=== PATIENT | female | born 1945 | race Caucasian/White ===

== ENCOUNTER → 2017-03-08 | Outpatient (CLI) | payer OTHER, MEDICARE ==
[~2017-03-08] MED LIST: ALT/10 PO; ASPEC81 PO; CALCTAB5 PO; CLOP1TAB15 PO; CYAN100048 PO; EZET10TA47 PO; FAMO1TAB47 PO; LATA0.009 OPB; MELO7.5T5 PO; METO25TA56 PO; MULT-845 PO; NITR0.6S7; TRIA0.1L TOP; VENL1CAP92 PO; VTMD1000 PO
[2017-03-08 12:40] LABS: ALT/SGPT 56 U/L (12-78); BLOOD UREA NITROGEN 20 mg/dl (7-18); BUN/CREATININE RATIO 16.7 (10-20); CALCIUM 9.2 mg/dl (8.5-10.1); CARBON DIOXIDE 30 mmol/L (21-32); CHLORIDE 102 mmol/L (98-107); CREATININE 1.18 mg/dl (0.60-1.20); GLUCOSE 167 mg/dl (70-99); POTASSIUM 4.1 mmol/L (3.5-5.1); SODIUM 138 mmol/L (136-145)
[2017-03-08 12:43] LABS: ALKALINE PHOSPHATASE 96 U/L (45-117); AST/SGOT 45 U/L (15-37); CHOLESTEROL 133 mg/dl (0-200); CHOLESTEROL/HDL RATIO 2.7; HDL CHOLESTEROL 50 mg/dl; LDL CHOLESTEROL CALCULATED 53 mg/dl; TRIGLYCERIDES 152 mg/dl (0-150); VERY LOW DENSITY LIPOPROT CALC 30 mg/dl
[2017-03-08 12:48] LABS: ESTIMATED AVERAGE GLUCOSE 177 mg/dl; HA1C FLAG Normal (Normal)
[2017-03-08 12:59] LABS: HEMATOCRIT 43.3 % (37-47); MEAN CELL VOLUME 95.4 fL (80-100); MEAN CORPUSCULAR HEMOGLOBIN 32.4 pg (25-34); MEAN CORPUSCULAR HGB CONC 33.9 g/dl (32-36); MEAN PLATELET VOLUME 13.1 fL (7.4-10.4); PLATELET COUNT 111 K/uL (130-400); RED BLOOD COUNT 4.54 M/uL (4.2-5.4); WHITE BLOOD COUNT 4.68 K/uL (4.8-10.8)
[2017-03-08 17:38] LABS: COMPLETE YES; LYMPH ABS # 1.16 K/uL (1.2-3.4); LYMPHOCYTE % 24.8 %; NEUTROPHILS % 44.2 %; VARIANT LYM ABS # 0.87 K/uL; VARIANT LYMPHOCYTE % 18.6 %
== END | disposition home or self-care (01) ==
LOC: C.LABPBG 10:12
PROVIDERS: ATTEND Physician Assistant
DX: E11.9 Type 2 diabetes mellitus without complications (principal); E78.5 Hyperlipidemia, unspecified

== ENCOUNTER → 2017-07-02 | Outpatient (CLI) | payer OTHER, MEDICARE ==
[2017-07-02 12:58] LABS: BASO % 0.9 %; BASO ABS # 0.04 K/uL (0-0.2); EOS % 2.4 %; EOS ABS # 0.11 K/uL (0-0.5); HEMATOCRIT 43.2 % (37-47); HEMOGLOBIN 14.6 g/dL (12.0-16.0); IG# 0.02 K/uL (0.00-0.02); LYMPH % 37.3 %; LYMPH ABS # 1.72 K/uL (1.2-3.4); MEAN CELL VOLUME 93.9 fL (80-100); MEAN CORPUSCULAR HEMOGLOBIN 31.7 pg (25-34); MEAN CORPUSCULAR HGB CONC 33.8 g/dl (32-36); MEAN PLATELET VOLUME 12.6 fL (7.4-10.4); MONO % 6.1 %; MONO ABS # 0.28 K/uL (0.11-0.59); NEUT % 52.9 %; NEUT ABS # 2.44 K/uL (1.4-6.5); PLATELET COUNT 118 K/uL (130-400); RED CELL DISTRIBUTION WIDTH CV 13.7 % (11.5-14.5); RED CELL DISTRIBUTION WIDTH SD 46.7 fL (36.4-46.3); WHITE BLOOD COUNT 4.61 K/uL (4.8-10.8)
[2017-07-02 13:07] LABS: HEMOGLOBIN A1C 7.8 % (4.5-5.6)
== END | disposition home or self-care (01) ==
LOC: C.LABPBG 09:54
PROVIDERS: ATTEND Nurse Practitioner Family
DX: D69.6 Thrombocytopenia, unspecified (principal); E11.9 Type 2 diabetes mellitus without complications

== ENCOUNTER → 2017-09-06 | Outpatient (CLI) | payer OTHER, MEDICARE ==
[2017-09-10 10:43] LABS: ANA SCREEN TC 249X POSITIVE (NEGATIVE)
== END | disposition home or self-care (01) ==
LOC: C.LABPBG 12:29
PROVIDERS: ATTEND Family Medicine
DX: M25.50 Pain in unspecified joint (principal)

== ENCOUNTER → 2017-12-02 | Outpatient (CLI) | payer OTHER, MEDICARE ==
[~2017-12-02] MED LIST changes: -ALT/10 PO; -ASPEC81 PO; +ATOR-24 PO; +BIMA0.01 OP; +BIOT1TAB2 PO; +BUME1TAB PO; -CALCTAB5 PO; -CLOP1TAB15 PO; -CYAN100048 PO; -EZET10TA47 PO; -FAMO1TAB47 PO; +GLC/500 PO; +GLC500 PO; +HYDR-5688 PO; +ISR/30 PO; -LATA0.009 OPB; +LIRA18IN SQ; -MELO7.5T5 PO; -METO25TA56 PO; +METO50TA16 PO; -MULT-845 PO; -NITR0.6S7; +OMEG12006 PO; +PYRI100T4 PO; -TRIA0.1L TOP; +VALS320T PO; -VENL1CAP92 PO; -VTMD1000 PO; +klor con PO; +omeprazole PO; +vitamin b12 PO; +vitamin d2 PO
[2017-12-02 16:59] LABS: BLOOD UREA NITROGEN 13 mg/dl (7-18); CALCIUM 8.6 mg/dl (8.5-10.1); CARBON DIOXIDE 28 mmol/L (21-32); CREATININE 1.08 mg/dl (0.60-1.20); GLUCOSE 216 mg/dl (70-99); POTASSIUM 4.9 mmol/L (3.5-5.1); SODIUM 138 mmol/L (136-145)
== END | disposition home or self-care (01) ==
LOC: C.LABPBG 14:45
PROVIDERS: ATTEND Family Medicine
DX: R25.2 Cramp and spasm (principal)

== ENCOUNTER 2018-11-21 05:49 | Inpatient (IN) ==
--- NOTE | 2018-10-20 11:09 | Anesthesiology Consultation ---
Date of Service October 20, 2018 Assessment & Plan (1) Encounter for pre-operative examination: CHECK BSG AM DOS Cardiology clearance 11/07/2018: BP and heart rate are well controlled, denies complaints of chest pain or dyspnea and EKG is satisfactory. Patient is stable and at optimal cardiac status presently to proceed with planned surgery. According to ACC/AHA 2007 guidelines on perioperative cardiovascular evaluation and care for noncardiac surgery, monotherapy with ASA need not be routinely discontinued for elective noncardiac surgery. Aspirin should be discontinued if no bleeding risks are similar or more severe than cardia vascular risk of ASA withdrawal. Therefore whether or not to discontinue aspirin will be left to the surgeon's discretion. Chart Review Chart Review: Acceptable Risk for Surgery and Patient seen in Pre Admission Testing Teaching & Discussion Instructed NPO after midnight before surgery, except medications with 15 cc of water. Medication instructions provided according to the PAT guidelines. History Surgery Operation Date: 11/21/18 13:35 Proposed Procedures p Left Shoulder Replacement - Amor Dawn, Height/Weight Height: 4 ft 11 in Weight: 103.6 kg Allergies Allergy/AdvReac Type Severity Reaction Status Date / Time [id number]-Utb-Xtz Reductase AdvReac Unknown myalgias, Verified 10/30/18 12:58 Inhibitor hair loss, fatigue Medications Home Medications Medication Instructions Recorded Confirmed Last Taken aluminum hydrox-magnesium carb 95 15 ml PO DAILY PRN 07/09/18 10/30/18 Unknown mg-358 mg/15 mL oral suspension atorvastatin 40 mg tablet 40 mg PO HS 10/07/18 10/30/18 Unknown bimatoprost 0.01 % eye drops 1 drops OP 10/07/18 10/30/18 Unknown bumetanide 1 mg tablet 1 mg PO [facility] 10/07/18 10/30/18 Unknown calcium 600 mg-D3 800 unit-mag11 1 tab PO [facility] 10/07/18 10/30/18 Unknown 50 cm-bkkg-chylvr-yamil-s.borat tablet isosorbide mononitrate ER 30 mg 30 mg PO [facility] 10/07/18 10/30/18 Unknown tablet,extended release 24 hr multivitamin tablet 1 tab PO QA 10/07/18 10/30/18 Unknown omeprazole 40 mg capsule,delayed 40 mg PO QA 10/07/18 10/30/18 Unknown release potassium chloride ER 10 mEq 10 meq PO BID 10/07/18 10/30/18 Unknown tablet,extended release biotin 5 mg PO QPM 10/14/18 10/30/18 Unknown cyanocobalamin (vitamin B-12) 2,500 mcg PO QPM 10/14/18 10/30/18 Unknown tramadol 50 mg PO BID PRN 10/14/18 10/30/18 Unknown aspirin 81 mg tablet,delayed PO .TAKE 1 TABLET DAILY. tab 10/17/18 10/17/18 Unknown release insulin glargine (U-100) 100 22 units SQ DAILY ml 10/30/18 10/30/18 Unknown unit/mL (3 mL) subcutaneous pen liraglutide 0.6 mg/0.1 mL (18 mg/3 1.8 mg SQ QAM ml 10/30/18 10/30/18 Unknown mL) subcutaneous pen injector metoprolol succinate ER 50 mg 50 mg PO DAILY tab 10/30/18 10/30/18 Unknown tablet,extended release 24 hr losartan 100 mg tablet 100 mg PO DAILY #90 tab 11/06/18 Unknown Past Medical History Medical History Acid reflux disease Coronary artery disease s/p cardiac cath with single stent 2015 Depression Hyperlipidemia Osteoarthritis Paroxysmal supraventricular tachycardia 9 beat run noted on Holter per cardiology Thrombocytopenia Noted as far back as 02/2017 Vitamin D deficiency Fatty liver Diabetes A1C 7.7% Hypertension Low back pain (Resolved) Shoulder pain, left (Resolved) Exercise / Class Metabolic Activity III < 4 Walking/Shop/Light housework (Limited by back pain, but denies SOB and CP with ambulation) Past Family History Family History Brother Alcohol abuse Colorectal cancer Sister Colorectal cancer Lung disease Uterus cancer Fatty liver Liver cancer Father Colorectal cancer Lung disease Mother Stroke Past Surgical History Surgical History History of bilateral tubal ligation (Resolved) History of colon surgery (Resolved) RECTOCELE REPAIR History of hysterectomy (Resolved) History of knee surgery (Resolved) right History of left breast biopsy (Resolved) History of shoulder surgery (Resolved) x 2 right torn rotator cuff History of thumb surgery (Resolved) right repair ligament and tendons Hx of tonsillectomy (Resolved) with adenoidectomy Previous back surgery (Resolved) x 2 Revision L5-S1 and L2-L5 fusion 2014 History of cardiac cath 1 STENT PLACED 03/2016-[facility] History of cataract surgery R/L History of colonoscopy X MULTIPLE History of esophagogastroduodenoscopy (EGD) X MULTIPLE History of surgery on right wrist Past Anesthesia History No Hx of Anesthesia Complications and No Family Hx of Anesthesia Complications 09/24/14 Lumbar surgery @ [facility] = MAC #3, ETT 7.0, GV I. Smooth IV induction and atraumatic ETT placement. History of PONV No Hx of PONV and No Hx of Motion Sickness Social History Smoking Status: Never smoker Do You Dip or Chew Tobacco: No Hx Alcohol Use: No Hx Substance Use: No Review of Systems Pt denies any recent chest pain, shortness of breath, palpitations, cough, fever or URI. Physical Exam Vital Signs BP: 150/71 (pt reports this is high for her, she does track her BP at home) P: 65bpm SPO2: 96% RA T: 97.9 F R: 18 Constitutional + morbidly obese ENMT Mouth: + dentures and + edentulous Thyromental Distance: > or= 3.5 Finger Breadths (4) Mallampati Class: III Neck + short neck, + thick neck and + limited neck extension (moderately) Respiratory normal respiratory effort Auscultation: lungs clear to auscultation bilaterally Cardiovascular Rate/Rhythm: regular rate and regular rhythm Heart Sounds: no murmur Vessels: no carotid bruit Extremities: no edema Testing Laboratory Results 10/20/18 11:32 10/20/18 11:32 10/20/18 10/20/18 10/20/18 11:32 11:32 11:32 PT 11.0 INR 1.1 APTT 28.8 Hemoglobin A1c 7.7 H Blood Type O Positive Antibody Screen NEGATIVE Thrombocytopenia consistent with baseline. Updated Labs 11/14/18 SODIUM: 141 POTASSIUM: 4.2 CHLORIDE: 104 CO2: 31 BUN: 17.6 CREATININE: 1.14 GLUCOSE: 166 Electrocardiogram Date: 10/20/18 Findings: + NSR @ (69) Rightward axis, no significant change from 08/31/14 EKG. Chest X-Ray Date: 10/20/18 IMPRESSION: 1. No acute cardiopulmonary findings. 2. Mild cardiomegaly. Echocardiogram Date: 09/06/12 EF: 60% Technically difficult study with poor endocardial delineation which precludes proper assessment of the wall motion and LV systolic function, however, there appears to be mild concentric LVH with possibly preserved LV systolic function, LV cavity size appears to be normal. Normal RV size and systolic function. Left atrium is of normal size, right atrium is mildly dilated. The mitral and tricuspid valves are structurally normal with trace regurgitation. Aortic valve is trileaflet with adequate leaflet excursion. The pulmonary valve is not well seen. Stress Test Date: 03/05/16 Cardiac Catheterization Date: 03/14/16 Intervention: + ANITA placed (to LAD) Two-vessel coronary artery disease. Nondominant RCA with normal vessel. Normal left main. Left anterior descending with transapical vessel. Distal 40%. Moderate D1 and small D2. AV groove circumflex with multiple marginal branches. Dominant vessel. Distal circumflex before the PDA 20%. PCI of LAD distal 40% to 0% after Xience drug-eluting stent placement. No significant complications. Normal LV function. Hemodynamics normal.
--- NOTE | 2018-10-20 11:15 | PAT Medication Instructions ---
Medication Instructions Date of Service October 20, 2018 Home Medications Gaviscon 15 mL oral suspension 15 ml PO DAILY PRN aspirin 81 mg tablet,delayed release 81 mg PO QPM atorvastatin 40 mg tablet 40 mg PO HS bimatoprost 0.01 % eye drops 1 drops OP HS bumetanide 1 mg tablet 1 mg PO QAM Multivitamin 1 tab PO QAM isosorbide mononitrate ER 30 mg tablet,extended release 24 hr 30 mg PO QAM liraglutide 0.6 mg/0.1 mL (18 mg/3 mL) subcutaneous pen injector 0.6 mg SQ QAM losartan 100 mg tablet 100 mg PO QAM omeprazole 40 mg capsule PO QAM potassium chloride ER 10 mEq tablet 10 meq PO BID biotin 5 mg PO QPM cyanocobalamin (vitamin B-12) 2,500 mcg PO QPM tramadol 50 mg PO BID PRN bimatoprost 0.01 % eye drops OP .INSTILL 1 DROP Continue as directed bimatoprost 0.01 % eye drops OP .INSTILL 1 DROP DO NOT take the morning of surgery Gaviscon 15 mL oral suspension 15 ml PO DAILY PRN bumetanide 1 mg tablet 1 mg PO QAM Multivitamin 1 tab PO QAM losartan 100 mg tablet 100 mg PO QAM potassium chloride ER 10 mEq tablet 10 meq PO BID Take morning of surgery With a small sip of water, OTHERWISE NOTHING TO EAT OR DRINK AFTER MIDNIGHT: isosorbide mononitrate ER 30 mg tablet,extended release 24 hr 30 mg PO QAM liraglutide 0.6 mg/0.1 mL (18 mg/3 mL) subcutaneous pen injector 0.6 mg SQ QAM omeprazole 40 mg capsule PO QAM tramadol 50 mg PO BID PRN (if needed, may be taken up to four hours before surgery) Take evening before surgery Gaviscon 15 mL oral suspension 15 ml PO DAILY PRN (if needed) aspirin 81 mg tablet,delayed release 81 mg PO QPM atorvastatin 40 mg tablet 40 mg PO HS potassium chloride ER 10 mEq tablet 10 meq PO BID biotin 5 mg PO QPM cyanocobalamin (vitamin B-12) 2,500 mcg PO QPM tramadol 50 mg PO BID PRN (if needed) Other Notes If you have any questions please call us at [phone] or [phone] or [phone] or [phone]
[2018-10-20 12:10] LABS: Hematocrit (blood only) 44.5 % (37-47); Hemoglobin 14.7 g/dL (12.0-16.0); Mean Corpuscular Volume 93.3 fL (80-100); RDW Standard Deviation 47.7 fL (36.4-46.3); Red Blood Count 4.77 M/uL (4.2-5.4); White Blood Count 5.05 K/uL (4.8-10.8)
[2018-10-20 12:14] LABS: INR 1.1 (0.9-1.1); Partial Thromboplastin Ratio 1.1; Partial Thromboplastin Time 28.8 Seconds (21.0-31.0)
[2018-10-20 12:26] LABS: BUN Creatinine Ratio 15.6 (10-20); Calcium 9.4 mg/dl (8.5-10.1); Creatinine Clr Calc Pharmacy 56.4 ml/min; Est GFR (African American) 70.2; Est GFR (Non-African American) 60.5; Potassium 4.4 mmol/L (3.5-5.1)
[2018-10-20 12:38] LABS: Basophils # (auto) 0.03 K/uL (0-0.2); Basophils % (auto) 0.6 %; Eosinophils # (auto) 0.09 K/uL (0-0.5); Eosinophils % (auto) 1.8 %; Immature Granulocytes # (auto) 0.02 K/uL (0.00-0.02); Immature Granulocytes % (auto) 0.4 %; Lymphocytes # (auto) 2.02 K/uL (1.2-3.4); Mean Platelet Volume 12.5 fL (7.4-10.4); Monocytes % (auto) 9.9 %; Neutrophils # (auto) 2.39 K/uL (1.4-6.5); Neutrophils % (auto) 47.3 %; Platelet Count 112 K/uL (130-400); Platelet Estimate Decreased (Normal); RBC Morphology Unremarkable
--- NOTE | 2018-10-20 12:47 | XRay Report ---
XR chest Pre-admission PA/Lat CLINICAL HISTORY: Preoperative evaluation. COMPARISON STUDY: No previous studies for comparison. FINDINGS: Lung volumes are normal. There is no pneumothorax or pleural effusion. There is no consolid ation or evidence for pulmonary edema. There is mild cardiomegaly. Lumbar spine fusion hardware is pa rtially imaged. IMPRESSION: 1. No acute cardiopulmonary findings. 2. Mild cardiomegaly. Electronically signed by: Jacob Canales M.D. 10/20/2018 12:46 PM
[2018-10-20 13:33] LABS: Estimated Average Glucose 174 mg/dl; Hemoglobin A1C 7.7 % (4.5-5.6)
--- NOTE | 2018-11-20 06:48 | History & Physical Report ---
Date of Service November 20, 2018 Assessment & Plan (1) Osteoarthritis of left shoulder: We will proceed with a left total shoulder arthroplasty. Postoperatively she will be placed in an arm sling and kept overnight in the hospital for postoperative medical management. She plans to use outpatient physical therapy upon discharge. Present on Admission?: Yes History of Present Illness Chief Complaint: Primary osteoarthritis of the left shoulder Primary Care Provider: Jacqueline Alarcon DO Concetta is a pleasant 73-year-old female with a several year history of increasing left shoulder pain. It hurts when she does anything above chest level or away from her body. Is a constant dull ache with positional sharp pains. MRI and clinical examination were diagnostic for osteoarthritis of the left shoulder. After failing conservative treatment, she elected proceed with a left total shoulder arthroplasty. Allergies Allergy/AdvReac Type Severity Reaction Status Date / Time Okrueal-Bpr-Kay Reductase AdvReac Unknown myalgias, Verified 10/30/18 12:58 Inhibitor hair loss, fatigue Home Medications Home Medications Medication Instructions Recorded Confirmed Type aluminum hydrox-magnesium carb 95 15 ml PO DAILY PRN 07/09/18 10/30/18 History mg-358 mg/15 mL oral suspension atorvastatin 40 mg tablet 40 mg PO HS 10/07/18 10/30/18 History bimatoprost 0.01 % eye drops 1 drops OP 10/07/18 10/30/18 History bumetanide 1 mg tablet 1 mg PO [facility] 10/07/18 10/30/18 History calcium 600 mg-D3 800 unit-mag11 1 tab PO [facility] 10/07/18 10/30/18 History 50 lx-kffw-lwlfyi-yamil-s.borat tablet isosorbide mononitrate ER 30 mg 30 mg PO [facility] 10/07/18 10/30/18 History tablet,extended release 24 hr multivitamin tablet 1 tab PO QA 10/07/18 10/30/18 History omeprazole 40 mg capsule,delayed 40 mg PO QA 10/07/18 10/30/18 History release potassium chloride ER 10 mEq 10 meq PO BID 10/07/18 10/30/18 History tablet,extended release biotin 5 mg PO QPM 10/14/18 10/30/18 History cyanocobalamin (vitamin B-12) 2,500 mcg PO QPM 10/14/18 10/30/18 History tramadol 50 mg PO BID PRN 10/14/18 10/30/18 History aspirin 81 mg tablet,delayed PO .TAKE 1 TABLET DAILY. tab 10/17/18 10/17/18 History release insulin glargine (U-100) 100 22 units SQ DAILY ml 10/30/18 10/30/18 History unit/mL (3 mL) subcutaneous pen liraglutide 0.6 mg/0.1 mL (18 mg/3 1.8 mg SQ QAM ml 10/30/18 10/30/18 History mL) subcutaneous pen injector metoprolol succinate ER 50 mg 50 mg PO DAILY tab 10/30/18 10/30/18 History tablet,extended release 24 hr losartan 100 mg tablet 100 mg PO DAILY #90 tab 11/06/18 Rx Past Med/Surg History Medical History Acid reflux disease Coronary artery disease s/p cardiac cath with single stent 2015 Depression Hyperlipidemia Osteoarthritis Paroxysmal supraventricular tachycardia 9 beat run noted on Holter per cardiology Thrombocytopenia Noted as far back as 02/2017 Vitamin D deficiency Fatty liver Diabetes A1C 7.7% Hypertension Low back pain (Resolved) Shoulder pain, left (Resolved) Surgical History History of bilateral tubal ligation (Resolved) History of colon surgery (Resolved) RECTOCELE REPAIR History of hysterectomy (Resolved) History of knee surgery (Resolved) right History of left breast biopsy (Resolved) History of shoulder surgery (Resolved) x 2 right torn rotator cuff History of thumb surgery (Resolved) right repair ligament and tendons Hx of tonsillectomy (Resolved) with adenoidectomy Previous back surgery (Resolved) x 2 Revision L5-S1 and L2-L5 fusion 2014 History of cardiac cath 1 STENT PLACED 03/2016-[facility] History of cataract surgery R/L History of colonoscopy X MULTIPLE History of esophagogastroduodenoscopy (EGD) X MULTIPLE History of surgery on right wrist Family History Brother Alcohol abuse Colorectal cancer Sister Colorectal cancer Lung disease Uterus cancer Fatty liver Liver cancer Father Colorectal cancer Lung disease Mother Stroke Social History Preferred Language: Greek Communication Ability: Effective Visual Impairment: No Limitations Hearing Ability: Hard of Hearing 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 Beliefs That Will Affect Care: None marital status: Current Living Situation: Spouse Current Living Situation Comment: lives with spouse and adult grandson current occupational status: retired 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 Other Information That Helps Us Care for You: No Feels Safe at Home: Yes Safety Concerns: Feels Safe At This Time Smoking Status: Never smoker Tobacco Type: smokeless tobacco Do You Dip or Chew Tobacco: No Second Hand Exposure: No Hx Alcohol Use: No Hx Substance Use: No Dental Care, Regularly: No Physical Activity Frequency: Does not Exercise Seatbelt Use: always Review of Systems All systems reviewed & are unremarkable except as noted in HPI & below Physical Exam 2 Constitutional: WD/WN, vitals as above Eyes: PERRL, conjunctivae normal, anicteric sclerae ENMT: external ear and nose normal, oropharynx normal Neck: trachea midline, no thyromegaly Respiratory: normal respiratory effort Cardiovascular: RRR, no murmur, no edema Gastrointestinal (Abdomen): normal bowel sounds, soft, nontender, no hepatosplenomegaly Musculoskeletal: Physical examination of the left shoulder reveals decreased range of motion and crepitis throughout. There is good strength with full can testing and external rotation. There is tenderness palpation along the anterior glenohumeral joint line. The right upper extremity is neurovascularly intact. Psychiatric: A+Ox3, euthymic affect Results & Data Diagnostic Findings Radiographs of the left shoulder show signs of minimal arthritis of the glenohumeral joint. MRI of the shoulder shows more extensive arthritis of the glenohumeral joint without any evidence of rotator cuff tears.
[2018-11-21] MEDS ORDERED: TRANEXAMIC ACID 1,000 MG **IV Pre-op IV SCH (06:00)
[2018-11-21] MEDS ORDERED: LR 15ML/HR IV SCH (06:00)
[2018-11-21] MEDS ORDERED: ROPIVACAINE 0.5% HCL/PF 150 MG, BUPIVACAINE 0.5% MPF 30 ML, EPINEPHrine 30MG/30ML (OR U... INSTIL SCH (06:00)
[2018-11-21] MEDS ORDERED: FAMOTIDINE 20 MG TAB PO SCH (06:00)
[2018-11-21] MEDS ORDERED: GABAPENTIN 300 MG CAP PO SCH (06:00)
[2018-11-21] MEDS ORDERED: CEFAZOLIN 2000MG 2,000 MG/15 ML SYR IV SCH (06:00)
[2018-11-21] MEDS ORDERED: LACTATED RINGER'S 1,000 ML IV SCH (06:00)
[2018-11-21] MEDS ORDERED: ACETAMINOPHEN 500 MG TAB PO SCH (06:00)
[2018-11-21] MEDS ORDERED: DEXAMETHASONE SOD INJ 4 MG/ML VIAL ONE (06:24)
[2018-11-21] MEDS ORDERED: PROPOFOL IV EMULSION 10 MG/ML 20 ML VIAL IV ONE ×2 (06:24→09:20)
[2018-11-21] MEDS ORDERED: ONDANSETRON INJ 2 MG/ML 2 ML VIAL ONE (06:24)
[2018-11-21] MEDS ORDERED: NEOSTIGMINE METHYLSULFATE 5 MG/5 ML SYR ONE (06:24)
[2018-11-21] MEDS ORDERED: fentaNYL citrate 100 MCG/2 ML VIAL ONE (06:24)
[2018-11-21] MEDS ORDERED: ROCURONIUM BROMIDE 10 MG/ML 5 ML VIAL ONE (06:24)
[2018-11-21] MEDS ORDERED: GLYCOPYRROLATE 0.2 MG/ML VIAL ONE (06:24)
[2018-11-21] MEDS ORDERED: MIDAZOLAM HCL 1 MG/ML 2ML VIAL ONE (06:25)
[2018-11-21] MEDS ORDERED: TRANEXAMIC ACID 1,000 MG **IV Intra-op IV SCH (06:30)
--- NOTE | 2018-11-21 06:52 | History & Physical Bridge Note ---
Date of Service November 21, 2018 History & Physical Bridge Note I have examined the patient, reviewed the History & Physical and in the interval since the performance of the History & Physical I have noted the following changes of clinical significance: no changes noted
[2018-11-21] MEDS ORDERED: ROPIVACAINE 0.5% 5 MG/ML 30 ML VIAL ONE (07:38)
[2018-11-21] MEDS ORDERED: ORTHO JOINT ANESTHETIC ONE (07:38)
[2018-11-21] MEDS ORDERED: BUPIVACAINE 0.5 % 5 MG/1 ML PF 10ML VIAL ONE (07:44)
[2018-11-21] MEDS ORDERED: KETOROLAC 30 MG/ML VIAL IV PRN (08:08)
[2018-11-21] MEDS ORDERED: ATROPINE SULFATE 0.1 MG/ML 10ML SYR IV PRN (08:08)
[2018-11-21] MEDS ORDERED: ONDANSETRON INJ 2 MG/ML 2 ML VIAL IV PRN ×2 (08:08→11:51)
[2018-11-21] MEDS ORDERED: HYDROmorphone INJ 1 MG/ML SYRINGE IV PRN (08:08)
[2018-11-21] MEDS ORDERED: LABETALOL HCL IV 5 MG/ML 20ML IV PRN (08:08)
[2018-11-21] MEDS ORDERED: PHENYLEPHRINE HCL 10 MG/ML VIAL ONE (09:07)
--- NOTE | 2018-11-21 10:20 | Operative Report ---
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 X-rays showed mild arthritis but MRI showed more severe arthritis. After failing conservative treatment, she elected to proceed with a left total shoulder arthroplasty. Description of Procedure Implants used: I used a Biomet Comprehensive total shoulder arthroplasty system with a size 8 press fit mini humeral stem, a size 42 x 18 eccentric humeral head, and a small size glenoid with a Regenerex peg. The glenoid was cemented in place with Palacos G cement. The patient arrived at [facility] for the above procedure. There were seen in the preoperative holding area and the operative extremity was identified and signed. They were given a preoperative antibiotic and an interscalene nerve block. They were taken back to the operating room, laid on table in supine position, and put under general anesthesia. They were then put into the beachchair position. The shoulder was then prepped and draped in sterile fashion. A timeout was done and the patient in the operative extremity was properly identified. A deltopectoral approach was used. Dissection was taken down through the fascia and the deltoid was retracted laterally and the conjoined tendon was retracted medially. The anterior shoulder was exposed. The long head of the biceps tendon was tenodesed to the upper border of the pectoralis major. The subscapularis was then released off the lesser tuberosity with a centimeter of cuff tissue remaining. The inferior capsule was released and the humeral head was dislocated. The rotator cuff was inspected and intact. A canal finding reamer was sent down the center of the humeral canal. Sequential reaming up to a size 8 reamer was done. Offset reamer a proximal humeral resection guide was placed. The proximal humerus was resected at 135 of inclination and 30 of retroversion. Inferior osteophytes were then removed and the glenoid was exposed. Time was spent doing an appropriate labral release. The glenoid measured to be a size small. A 3.2 mm Steinmann pin was placed in the central hole of the glenoid vault pin guide. The glenoid was then reamed with a propeller reamer. The central post cutter w as then used to prepare for the central boss. The cannulated peripheral peg drill guide was then placed and 3 peg holes were drilled. The final size small glenoid was then cemented in place with Palacos G cement. Surrounding soft tissues were then injected with 100 cc of an orthopedic pain control cocktail. Once cement had dried the proximal humerus was once again exposed. Sequential broaching of the humerus up to a size 8 broach was done. Off that broach a size 42 x 18 eccentric humeral head was trialed. The shoulder was then reduced, brought through a full range of motion and felt to be stable. The shoulder was then dislocated and the broach was removed. The final size 8 mini humeral stem implant was then impacted into place. A size 42 x 18 eccentric humeral head was then impacted onto the humeral stem. The shoulder was then reduced and once again brought through a full range of motion and felt to be stable. The subscapularis was then tenodesed back to the lesser tuberosity with transosseous FiberWire sutures and side to side sutures with the arm in 45 of external rotation. 2 sutures were placed in the lateral rotator interval. A dilute betadyne lavage was then done for 3 minutes. The joint was then irrigated with normal saline solution. Hemostasis was obtained. The skin was then closed with 2-0 Vicryl, 3-0V lock suture, and meka. A soft dressing was placed as well as a regular arm sling. The patient was then extubated and transferred to a hospital bed. There were taken to the postanesthesia care unit in stable condition. The tolerated the procedure well. I attest to the content of the Intraoperative Record and any orders documented therein. Any exceptions are noted below.
--- NOTE | 2018-11-21 11:27 | Anesthesiology Progress Note ---
Date of Service November 21, 2018 Anesthesia Post Procedure Vital Signs Vital Signs: Temp Pulse Pulse Resp BP Pulse Ox 11/21/18 11:15 36.4 C L 75 18 119/64 98 11/21/18 11:05 78 18 136/75 98 11/21/18 10:55 75 18 116/82 97 11/21/18 10:48 36.1 C L 75 18 139/66 96 11/21/18 06:31 36.6 C 81 20 161/98 H 96 Pain Intensity Back: Pain Intensity: 8 Transfer of Care Handoff Completed per policy Notes Mental Status: alert / awake / arousable Patient Amnestic to Procedure: Yes Nausea / Vomiting: adequately controlled Pain: adequately controlled Airway Patency, RR, SpO2: stable & adequate BP & HR: stable & adequate Hydration State: stable & adequate Anesthetic Complications: no major complications apparent
--- NOTE | 2018-11-21 11:45 | XRay Report ---
XR shoulder LT min 2V routine CLINICAL HISTORY: Post shoulder surgery COMPARISON:Left shoulder radiographs August 12, 2018. MRI of the left shoulder August 19, 2018. FINDINGS: Alignment of the left shoulder arthroplasty is anatomic. There is no periprosthetic fractu re or unexpected radiopaque foreign body. There are skin meka. Left lower lung opacity favors atel ectasis. IMPRESSION: Expected findings following left shoulder arthroplasty. Electronically signed by: Jacob Canales M.D. 11/21/2018 11:44 AM
[2018-11-21] MEDS ORDERED: TRAMADOL HCL 50 MG TABLET PO PRN (11:51)
[2018-11-21] MEDS ORDERED: NALOXONE HCL 0.4 MG/1 ML VIAL/CARP IV PRN (11:51)
[2018-11-21] MEDS ORDERED: METOCLOPRAMIDE HCL INJ 5 MG/ML 2 ML VIAL IV PRN (11:51)
[2018-11-21] MEDS ORDERED: HYDROmorphone INJ 0.5 MG/0.5 ML SYR IV PRN (11:51)
[2018-11-21] MEDS ORDERED: ALUMINUM/MAGNESIUM SUSP 30 ML UDC PO PRN (11:51)
[2018-11-21] MEDS ORDERED: BISACODYL 10 MG SUPP PR PRN (11:51)
[2018-11-21] MEDS ORDERED: MAGNESIUM HYDROXIDE SUSP 30 ML UDC PO PRN (11:51)
[2018-11-21] MEDS: SODIUM CHLORIDE 0.9% 1000ML 1,000 ML IV SCH ×2 (12:08→22:33)
[2018-11-21] MEDS ORDERED: PHARMACY GLYCEMIC MGMT CONSULT PRN (12:15)
[2018-11-21] MEDS: KETOROLAC TROMETHAMINE 15 MG/ML VIAL IV SCH ×2 (13:06→18:58)
[2018-11-21] MEDS: INSULIN ASPART 100 UNITS/ML 3 ML PEN SC SCH ×3 (13:07→21:30)
[2018-11-21] MEDS: ACETAMINOPHEN 500 MG TAB PO SCH ×2 (13:07→21:25)
[2018-11-21] MEDS ORDERED: NovoLIN-N (NPH) PER UNIT CHARGE SQ ONE (14:15)
--- NOTE | 2018-11-21 15:33 | Pharmacy Report ---
Glycemic Control Consultation - Date of Service November 21, 2018 - Scope Scope: Glycemic Pharmacist consulted by Amor López PA-C on 11/21/18 for glycemic control and to write orders per [facility] inpatient glycemic control protocol - Objective Weight: 105 kg Accuchecks BSG (last 24hrs): 11/21/18 11/21/18 06:23 10:51 POC Glucose 128 H 176 H HbA1c: Hemoglobin A1c 7.7 % (4.5-5.6) H 10/20/18 11:32 - Recent Pertinent Medications Outpatient Anti-diabetic Regimen: * Lantus 22 units HS * Victoza 1.8 mg SQ QAM * A1c = 7.7 % on 10/20/18 Risk Factors for Insulin Resistance: * Steroids: Dexamethasone 4 mg IV and 4 mg topically * Infection: Ancef 1 gm IV x 2 doses postop * IVF: NS @ 100 ml/hr * Recent Surgery: POD #0 L shoulder surgery * Diet: T2DM - Assessment & Plan Assessment & Plan: ASSESSMENT: * 73 y/o F admitted for L shoulder arthoplasty with T2DM maintained on Lantus 22 units HS and Victoza 1.8 mg SQ daily at home. * ADA & AACE recommend a goal blood sugar range 140-180 mg/dl for the majority of critically ill & non-critically ill patients. However, more stringent targets may be selected in individual cases. Will utilize more stringent goal of 110-140 mg/dl based on patient age & comorbidities. Additionally, tighter glycemic control is warranted to facilitate wound/infection healing. * Will hold Victoza and start patient on NPH x1 to prevent BSG spikes from Dexamethasone and Novolog for correctional and prandial coverage. * NPH 40 units was ordered this afternoon based on weight double stress of ~2. Home Lantus was continued as HS based on scale. PLAN FOR INPATIENT GLYCEMIC CONTROL: * Holding home Victoza regimen * Basal insulin: - NPH 40 units this afternoon - Lantus based on scale at HS: - less than 110 = give 12 units - 110 - 180 = give 22 units - greater than 180 = give 30 units * Bolus insulin * NovoLog per scale ACHS or Q6hrs while NPO * Goal Range: Low 110 mg/dL - High 140 mg/dL * Correction Factor: 15 mg/dL/unit * Nutritional / Prandial insulin per carb ratio of 1 unit per 5 grams CHO consumed * Please note that the plan above was derived based on current level of insulin resistance and hospital stress. These recommendations are appropriate for inpatient admission only. Plan of care upon discharge will need to be reassessed to avoid potential outpatient hypo/hyperglycemia. Thank you.
[2018-11-21] MEDS: CEFAZOLIN 2000MG 2,000 MG/15 ML SYR IV SCH (15:41)
[2018-11-21] MEDS ORDERED: NON-FORMULARY MEDICATION (Biotin 5 MG) PO SCH (21:00)
[2018-11-21] MEDS ORDERED: ATORVASTATIN 40 MG TAB PO SCH (21:00)
[2018-11-21] MEDS ORDERED: SENNA 8.6 MG TAB PO SCH (21:00)
[2018-11-21] MEDS ORDERED: BIMATOPROST OP SCH (21:00)
[2018-11-21] MEDS ORDERED: INSULIN GLARGINE SOLOSTAR 100 UNITS/ML 3 ML PEN SQ SCH (21:00)
[2018-11-21] MEDS: DOCUSATE SODIUM 100 MG CAP PO SCH (21:24)
[2018-11-21] MEDS: POTASSIUM CHLORIDE 10 MEQ TABCR PO SCH (21:25)
[2018-11-22] MEDS: KETOROLAC TROMETHAMINE 15 MG/ML VIAL IV SCH ×3 (00:28→07:16)
[2018-11-22] MEDS: CEFAZOLIN 2000MG 2,000 MG/15 ML SYR IV SCH (00:28)
[2018-11-22] MEDS: INSULIN ASPART 100 UNITS/ML 3 ML PEN SC SCH ×4 (00:29→09:08)
[2018-11-22] MEDS ORDERED: COUGH DROP (SUGAR FREE) LOZ 24 LOZ/1 BOX BUCCAL ONE (04:25)
[2018-11-22] MEDS: ACETAMINOPHEN 500 MG TAB PO SCH (06:07)
[2018-11-22 07:37] LABS: Hemoglobin 12.5 g/dL (12.0-16.0); Mean Corpuscular Hgb Conc 32.9 g/dL (32-36); RDW Coefficient of Variation 13.3 % (11.5-14.5); Red Blood Count 4.13 M/uL (4.2-5.4); White Blood Count 7.75 K/uL (4.8-10.8)
[2018-11-22 07:53] VITALS: BP 145/81; PULSE 66; TEMP 97.5; O2SAT 93
[2018-11-22 08:01] LABS: Mean Platelet Volume 12.6 fL (7.4-10.4); Platelet Count 84 K/uL (130-400)
[2018-11-22 08:02] LABS: Immature Granulocytes # (auto) 0.02 K/uL (0.00-0.02); Immature Granulocytes % (auto) 0.3 %; Lymphocytes # (auto) 1.27 K/uL (1.2-3.4); Lymphocytes % (auto) 16.4 %; Monocytes % (auto) 6.5 %; Neutrophils # (auto) 5.96 K/uL (1.4-6.5); Neutrophils % (auto) 76.8 %; Platelet Estimate Decreased (Normal)
[2018-11-22 08:03] LABS: BUN Creatinine Ratio 11.8 (10-20); Calcium 9.1 mg/dl (8.5-10.1); Creatinine Clr Calc Pharmacy 35.7 ml/min; Est GFR (African American) 46.8; Est GFR (Non-African American) 40.4; Potassium 4.9 mmol/L (3.5-5.1)
[2018-11-22] MEDS ORDERED: METOPROLOL SUCC 50MG EXT REL TAB PO SCH (09:00)
[2018-11-22] MEDS ORDERED: MULTIVITAMIN TAB PO SCH ×2 (09:00)
[2018-11-22] MEDS ORDERED: BUMETANIDE 1 MG TAB PO SCH (09:00)
[2018-11-22] MEDS ORDERED: PANTOprazole 40 MG TAB PO SCH (09:00)
[2018-11-22] MEDS ORDERED: LOSARTAN POTASSIUM 50 MG TAB PO SCH (09:00)
[2018-11-22] MEDS ORDERED: NON-FORMULARY MEDICATION (Liraglutide [Victoza 2-Pak] 1.8 MG) SQ SCH (09:00)
[2018-11-22] MEDS ORDERED: ISOSORBIDE MONO EXTENDED REL 30 MG TABCR PO SCH (09:00)
[2018-11-22] MEDS: DOCUSATE SODIUM 100 MG CAP PO SCH (09:31)
[2018-11-22] MEDS: POTASSIUM CHLORIDE 10 MEQ TABCR PO SCH (09:31)
--- NOTE | 2018-11-22 10:41 | Orthopedic Progress Note ---
Date of Service November 22, 2018 Assessment & Plan (1) Osteoarthritis of left shoulder: Overall she is doing very well. She does not have much pain in the left shoulder. She participated well with physical therapy. She was feeling a little short of breath after therapy but she her vitals are all stable and she is asymptomatic now. I feel safe sending her home. She will get outpatient physical therapy. She will follow-up with orthopedics in 2 weeks. Present on Admission?: Yes Subjective Patient was seen and examined at bedside this morning. Overall she is doing fairly well. She ambulated well today with physical therapy but got a little short of breath at the end. Overall she is feeling fine. She has no complaints. Physical Exam Musculoskeletal: On physical examination of the left shoulder, the dressing is clean and dry. She is wearing her sling as instructed. Her radial, median, and ulnar nerves are checked and intact at the wrist. Her axillary nerve is not checked yet. Results & Data Vital Signs (Past 12 Hours) Vital Signs Temp Pulse Resp BP Pulse Ox 11/22/18 07:50 36.4 C L 66 18 145/81 H 93 11/22/18 04:00 37.0 C 73 18 133/63 95 11/21/18 23:41 36.9 C 69 18 111/64 92 Laboratory Results H & H 10/20/18 11/22/18 Range/Units 11:32 07:15 Hgb 14.7 12.5 (12.0-16.0) g/dL Hct 44.5 38.0 (37-47) % Coagulation 10/20/18 Range/Units 11:32 INR 1.1 (0.9-1.1) Diagnostic Findings Postoperative x-rays of the left shoulder show the prosthesis to be in anatomic alignment without any evidence of fracture dislocation or loosening.
--- NOTE | 2018-11-22 10:42 | Discharge Summary ---
Date of Service November 22, 2018 Admission HPI Per Admitting Provider Concetta is a pleasant 73-year-old female with a several year history of increasing left shoulder pain. It hurts when she does anything above chest level or away from her body. Is a constant dull ache with positional sharp pains. MRI and clinical examination were diagnostic for osteoarthritis of the left shoulder. After failing conservative treatment, she elected proceed with a left total shoulder arthroplasty. Specialty Data Orthopedic H & H 10/20/18 11/22/18 Range/Units 11:32 07:15 Hgb 14.7 12.5 (12.0-16.0) g/dL Hct 44.5 38.0 (37-47) % Coagulation 10/20/18 Range/Units 11:32 INR 1.1 (0.9-1.1) Discharge Data Consultations 11/21/18 11:51 Consult Case Management - Discharge Planning Routine Procedures Performed Operation Date: 11/21/18 08:30 Actual Procedures p Left Shoulder Replacement, Cemented(Left) - Amor Dawn DO Hospital Course (1) Osteoarthritis of left shoulder: On November 21, 2018 Concetta arrived at [facility] and underwent a left total shoulder arthroplasty without complication. She had a general anesthetic and a left interscalene nerve block. Postoperatively she was placed in arm sling and discharged to general orthopedic floors. Her hospital course is uneventful. On postop day #1 her H&H was stable and her pain was well controlled. She was able to participate well with physical therapy. She was then discharged home with outpatient therapy. She will follow-up with orthopedics in 2 weeks. Discharge Instructions Home Medications Medication Instructions Recorded Confirmed aluminum hydrox-magnesium carb 95 15 ml PO DAILY PRN 07/09/18 11/21/18 mg-358 mg/15 mL oral suspension atorvastatin 40 mg tablet 40 mg PO HS 10/07/18 11/21/18 bumetanide 1 mg tablet 1 mg PO [facility] 10/07/18 11/21/18 calcium 600 mg-D3 800 unit-mag11 1 tab PO [facility] 10/07/18 11/21/18 50 ox-ldbe-ktcpoi-yamil-s.borat tablet isosorbide mononitrate ER 30 mg 30 mg PO [facility] 10/07/18 11/21/18 tablet,extended release 24 hr multivitamin tablet 1 tab PO [facility] 10/07/18 11/21/18 omeprazole 40 mg capsule,delayed 40 mg PO QAM 10/07/18 11/21/18 release potassium chloride ER 10 mEq 10 meq PO BID 10/07/18 11/21/18 tablet,extended release biotin 5 mg PO QPM 10/14/18 11/21/18 cyanocobalamin (vitamin B-12) 2,500 mcg PO QPM 10/14/18 11/21/18 tramadol 50 mg PO BID PRN 10/14/18 11/21/18 aspirin 81 mg tablet,delayed PO .TAKE 1 TABLET DAILY. tab 10/17/18 10/17/18 release insulin glargine (U-100) 100 22 units SQ DAILY ml 10/30/18 11/21/18 unit/mL (3 mL) subcutaneous pen liraglutide 0.6 mg/0.1 mL (18 mg/3 1.8 mg SQ QAM ml 10/30/18 11/21/18 mL) subcutaneous pen injector metoprolol succinate ER 50 mg 50 mg PO DAILY tab 10/30/18 11/21/18 tablet,extended release 24 hr Previous Rx's Medication Instructions Recorded losartan 100 mg tablet 100 mg PO DAILY #90 tab 11/06/18 hydrocodone-acetaminophen 1 tab PO Q6H PRN #40 tab 11/22/18
== END 2018-11-22 11:29 | disposition home or self-care (01) | DRG 483 ==
LOC: ASU 05:49 → 3E 10:52

== ENCOUNTER 2024-07-28 04:47 | Inpatient (IN) ==
[2024-07-28] MEDS: HYDROmorphone INJ 0.5 MG/0.5 ML SYR ONE (05:08)
[2024-07-28] MEDS: HYDROmorphone INJ 0.5 MG/0.5 ML SYR IV STA ×2 (05:08→07:01)
[2024-07-28] MEDS: ONDANSETRON INJ 2 MG/ML 2 ML VIAL IV STA (05:08)
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
[2024-07-28] MEDS: ONDANSETRON INJ 2 MG/ML 2 ML VIAL ONE (05:20)
--- NOTE | 2024-07-28 06:00 | XRay Report ---
EXAM: XR tibia fibula RT 2V CLINICAL HISTORY: fall TECHNIQUE: Radiograph of right tibia/fibula was acquired. COMPARISON: none FINDINGS: No acute fracture or dislocation. The soft tissues are unremarkable. The ankle mortise is well approximated. Knee joint alignment is within normal limits. IMPRESSION: 1. No acute osseous or soft tissue abnormality. Electronically signed by Evens Jaimes 07-28-2024 05:59 AM
--- NOTE | 2024-07-28 06:01 | XRay Report ---
EXAM: XR chest 1V portable CLINICAL HISTORY: fall TECHNIQUE: Radiograph of chest was acquired. 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 The cardiomediastinal silhouette is within normal limits. No acute osseous abnormality. IMPRESSION: 1. No acute cardiopulmonary disease. 2. No interval change Electronically signed by Evens Jaimes 07-28-2024 06:00 AM
--- NOTE | 2024-07-28 06:31 | CT Scan Report ---
EXAM: CT head/brain wo con CLINICAL HISTORY: fall on xarelto TECHNIQUE: Multiple axial images are obtained from the skull base to the vertex without contrast. CT scan was performed according to ALARA (as low as reasonable achievable). COMPARISON: None. FINDINGS: There is cerebral atrophy. No evidence of space occupying lesion, hemorrhage, edema, mass effect, midline shift, extra axial collection, or hydrocephalus is noted. Basal cisterns are symmetric and normal in size and configuration. There are scattered periventricular hypodensities as can be seen with chronic microvascular ischemic changes. The olivares-white matter differentiation is preserved. Visualized paranasal sinuses and mastoid air cells are well aerated. Orbital contents are within normal limits. Bony structures are intact. IMPRESSION: 1. No evidence of acute intracranial abnormality is demonstrated. 2. Chronic microvascular ischemic changes. 3. Cerebral atrophy. Electronically signed by Evens Jaimes 07-28-2024 06:31 AM
--- NOTE | 2024-07-28 06:34 | CT Scan Report ---
EXAM: CT cervical spine wo con CLINICAL HISTORY: fall TECHNIQUE: Computed tomography of the cervical spine performed without intravenous contrast. Contiguous axial images were obtained from the skull base to T2, with sagittal and coronal reformatted images reconstructed from the axial data. CT scan was performed according to ALARA (as low as reasonable achievable). COMPARISON: None. FINDINGS: Loss of cervical lordosis - suggest possibility of muscle spasm/positional. Degenerative changes involving cervical spine in the form of multilevel marginal osteophytes, disc space reduction and facetal arthrosis. Cervical vertebral bodies are normal in height and alignment, with no evidence of fracture or subluxation. Lateral masses of C1 are symmetrical, and the dens is intact. Prevertebral soft tissues are not widened. The remaining suprahyoid and infrahyoid soft tissues in the neck are unremarkable. Posterior uncovertebral arthrosis is noted at C6-C7 level which indenting ventral thecal sac and causes bilateral neuroforaminal narrowing. Thyroid gland appears unremarkable. IMPRESSION: 1.No acute fracture or subluxation in the cervical spine. 2.Cervical spondylosis. Electronically signed by Evens Jaimes 07-28-2024 06:33 AM
[2024-07-28 08:17] LABS: Basophils # (auto) 0.02 K/uL (0.00-0.20); Basophils % (auto) 0.2 %; Eosinophils # (auto) 0.08 K/uL (0.00-0.50); Eosinophils % (auto) 0.9 %; Hematocrit (blood only) 43.1 % (37.0-47.0); Hemoglobin 14.3 g/dl (12.0-16.0); Immature Granulocytes # (auto) 0.05 K/uL (0.01-0.20); Immature Granulocytes % (auto) 0.6 %; Lymphocytes # (auto) 2.13 K/uL (1.20-3.40); Mean Corpuscular Hemoglobin 31.2 pg (25.0-34.0); Mean Corpuscular Hgb Conc 33.2 g/dL (32.0-36.0); Mean Corpuscular Volume 94.1 fL (80.0-100.0); Monocytes # (auto) 0.68 K/uL (0.11-0.59); Monocytes % (auto) 7.7 %; Neutrophils # (auto) 5.91 K/uL (1.40-6.50); Neutrophils % (auto) 66.6 %; Platelet Count 152 K/uL (130-400); RDW Coefficient of Variation 13.5 % (11.5-14.5); RDW Standard Deviation 46.3 fL (36.4-46.3); Red Blood Count 4.58 M/uL (4.20-5.40); White Blood Count 8.87 K/ul (4.8-10.8)
[2024-07-28] MEDS: HYDROmorphone INJ 1 MG/ML SYRINGE IV STA (08:18)
[2024-07-28 08:23] LABS: BUN Creatinine Ratio 25.4 (10-20); Calcium 9.4 mg/dl (8.6-10.3); Creatinine Clr Calc Pharmacy 33.1 ml/min; Potassium 4.7 mmol/L (3.5-5.1)
[2024-07-28 08:46] LABS: INR 1.4 (0.9-1.1); Partial Thromboplastin Ratio 1.3; Partial Thromboplastin Time 35 Seconds (21-31); Prothrombin Time 14.6 Seconds (9.0-12.0)
--- NOTE | 2024-07-28 09:03 | History & Physical Report ---
Date of Service July 28, 2024 Assessment & Plan (1) Traumatic hematoma of right lower leg: Plan: The patient unfortunately suffered a mechanical fall today, July 28, resulting in subcutaneous hematoma formation of the right lower extremity with considerable pain. This may need to be drained. General surgery consultation requested. Xarelto has been placed on hold (2) Anticoagulant long-term use: Plan: She takes Xarelto chronically due to her chronic atrial fibrillation. Xarelto has been placed on hold (3) Fall: Plan: Mechanical. She denies syncope (4) Atrial fibrillation: Plan: Chronic. Rate control measures. Xarelto has been placed on hold. Telemetry (5) Coronary artery disease: Plan: Stable. Continue current medical management. Telemetry Plan To be determined History of Present Illness Chief Complaint: Right lower extremity pain Primary Care Provider: Jacqueline Alarcon DO 79-year-old white female on chronic Xarelto therapy for chronic atrial fibrillation. She suffered a mechanical fall today with abrasion of the right lower extremity without fracture. Unfortunately she has developed a large subcutaneous hematoma of the right lower extremity that is causing considerable pain. This may need to be drained by surgery. Consultation requested and pending. She is requiring parenteral narcotics for pain control at this time. She is admitted for further management. She denies syncope or chest pain. She denies palpitations Allergies Allergy/AdvReac Type Severity Reaction Status Date / Time [id number] Reductase AdvReac Unknown myalgias, Verified 07/13/24 14:53 Inhibitor hair loss, [[id number] Reductase fatigue Inhibitor] Home Medications Medication Instructions Recorded Confirmed Type atorvastatin 40 mg tablet 40 mg PO 10/07/18 07/28/24 History isosorbide mononitrate 30 mg 30 mg PO [facility] 10/07/18 07/28/24 History tablet,extended release 24 hr metoprolol succinate 50 mg 50 mg PO QAM 10/30/18 07/28/24 History tablet,extended release 24 hr aspirin 81 mg tablet,delayed 81 mg PO QAM 11/24/18 07/28/24 History release oxybutynin chloride 5 mg tablet 5 mg PO Q8H PRN bladder spasms #20 12/26/20 07/28/24 Rx tabs ascorbic acid (vitamin C) 500 mg 1,500 mg PO DAILY 03/01/21 07/28/24 History tablet cyanocobalamin (vitamin B-12) 50 50 mcg PO DAILY 03/01/21 07/28/24 History mcg tablet (Vitamin B-12) cholecalciferol (vitamin D3) 25 25 mcg PO DAILY 08/01/21 07/28/24 History mcg (1,000 unit) capsule rivaroxaban 20 mg tablet (Xarelto) 20 mg PO DAILY #90 tabs 08/01/21 07/28/24 Rx sodium bicarbonate 650 mg tablet 1,300 mg (2 x 650 mg) PO DAILY #60 01/17/22 07/28/24 Rx tabs blood sugar diagnostic (Contour #100 ea 01/10/24 07/13/24 Rx Next Test Strips) oxycodone 10 mg tablet 10 mg PO Q6H PRN pain #60 tabs 03/05/24 07/28/24 Rx omeprazole 40 mg capsule,delayed 40 mg PO QAM #90 caps 03/16/24 07/28/24 Rx release venlafaxine 150 mg 150 mg PO QAM #30 caps 03/16/24 07/28/24 Rx capsule,extended release 24 hr pen needle, diabetic 32 gauge x #100 ea 03/18/24 07/13/24 Rx 5/32" (BD Elise 2nd Gen Pen Needle) liraglutide 0.6 mg/0.1 mL (18 mg/3 1.8 mg (0.3 mL) subcut DAILY #9 mL 04/21/24 07/28/24 Rx mL) subcutaneous pen injector (Victoza 3-Esau) Lantus Solostar U-100 Insulin 100 26 unit (0.26 mL) subcut QPM #15 mL 06/16/24 07/28/24 Rx unit/mL (3 mL) subcutaneous pen (insulin glargine) amlodipine 5 mg tablet 5 mg PO DAILY #90 tabs 06/16/24 07/28/24 Rx losartan 50 mg tablet 100 mg (2 x 50 mg) PO DAILY #180 06/16/24 07/28/24 Rx tabs lidocaine 5 % topical patch 2 patch topical DAILY PRN Pain 07/13/24 07/28/24 History spironolactone 50 mg tablet 25 mg (1/2 x 50 mg) PO DAILY #30 07/17/24 07/28/24 Rx tabs levothyroxine 50 mcg tablet 50 mcg PO DAILY #30 tabs 07/24/24 07/28/24 Rx semaglutide 1 mg/dose (4 mg/3 mL) 1 mg subcut UD 07/28/24 07/28/24 History subcutaneous pen injector (Ozempic) tamsulosin 0.4 mg capsule 0.4 mg PO UD 07/28/24 07/28/24 History Past Med/Surg History Problem List (Updated 07/28/24 @ 09:01 by Kenji Dimas MD) Anticoagulant long-term use Fall (Acute) Traumatic hematoma of right lower leg (Acute) Osteoarthritis of right shoulder Osteoarthritis of left hip Iron deficiency Hypothyroidism Cirrhosis Noted CT chest Jun 2023 Diabetes IDDM Osteoarthritis of right knee Osteoarthritis of right hip Fibromyalgia Atrial fibrillation Obstructive sleep apnea Bladder cancer (12/2020) Lumbar spinal stenosis Lumbar facet joint syndrome Osteoarthritis of left shoulder Lumbosacral spondylosis Gastroparesis (Chronic) GERD (gastroesophageal reflux disease) Gastritis Rosacea Neurogenic claudication due to lumbar spinal stenosis Uncontrolled type 2 diabetes mellitus with hyperglycemia Chest wall pain Chronic issue, takes isosorbide Pulmonary nodule Anxiety (Chronic) Diffuse myofascial pain syndrome (Chronic) Cervicalgia (Chronic) Sacroiliitis Lumbar post-laminectomy syndrome Chronic venous insufficiency Coronary artery disease stent x1 (2015) Follows with [facility] Depression Hyperlipidemia Osteoarthritis Paroxysmal supraventricular tachycardia Remote hx 9 beat run noted on Holter per cardiology in 2019 Thrombocytopenia Vitamin D deficiency Fatty liver Hypertension Medical History Lumbar radicular pain Pain of left sacroiliac joint Surgical History Status post spinal surgery History of bladder surgery (12/26/20) Status post total shoulder arthroplasty History of surgery on right wrist History of esophagogastroduodenoscopy (EGD) History of colonoscopy History of cataract surgery History of cardiac cath History of left breast biopsy History of thumb surgery Hx of tonsillectomy History of colon surgery History of hysterectomy History of bilateral tubal ligation History of knee surgery History of shoulder surgery Previous back surgery Family History Brother Alcohol abuse Colorectal cancer Sister Colorectal cancer Lung disease Uterus cancer Fatty liver Ovarian cancer Liver cancer Father Colorectal cancer Lung disease Mother Stroke Grandmother (Maternal) Breast cancer Denies family history of Prostate cancer Myocardial infarction Social History Smoking Status: Never smoker Second Hand Exposure: No; Do You Dip or Chew Tobacco: No; Hx Alcohol Use: No Hx Substance Use: No Preferred Language: Chinese Communication Ability: Effective Visual Impairment: No Limitations Hearing Ability: Hard of Hearing Mortgage Underwriter Required: No Beliefs That Will Affect Care: None marital status: Current Living Situation: Spouse Current Living Situation Comment: lives with spouse and adult grandson current occupational status: retired 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 Tearful due to right lower extremity pain ENTno blurred vision, no double vision, no epistaxis, no sore throat Respiratoryno cough, no wheezing, no shortness of breath Cardiacno palpitations, no chest pain, no syncope Bianca nausea, vomiting, diarrhea, melena, hematochezia GUno urinary retention, no urinary incontinence, no dysuria, no hematuria Musculoskeletalright lower extremity pain at hematoma site below the knee , no muscle tenderness Skinsuperficial subcutaneous hematoma right lower extremity below the knee Neurono isolated weakness, no paresthesia, no weakness Psychno depression, no anxiety Physical Exam 2 Physical Exam: General-alert and oriented x3, no fever, no chills. Tearful from right lower extremity pain HEENT-head atraumatic and normocephalic, pupils equal and reactive to light, extraocular muscles intact Neck-no lymphadenopathy or thyromegaly, trachea midline Chest-clear to auscultation. No rales, wheezing or rhonchi Cardiac-irregular rhythm. Controlled rate. Normal S1 and S2 Abdomen-normal bowel sounds, no hepatosplenomegaly Extremities-superficial abrasions noted bilaterally below both knees. She has a large subcutaneous hematoma on the lateral aspect of the right lower leg. Neuro-cranial nerves II through XII intact, motor and sensory function within normal limits, strength symmetrical, no focal deficits Psych-normal affect, normal mood. Tearful however from right lower extremity pain Results & Data Results & Data Vital Signs (Past 12 Hours) Vital Signs Temp Pulse Pulse Resp BP BP Pulse Ox 07/28/24 07:42 101 H 22 96 07/28/24 07:30 87 19 96 07/28/24 07:30 155/90 H 07/28/24 07:30 155/90 H 07/28/24 07:30 155/90 H 07/28/24 07:30 155/90 H 07/28/24 07:30 155/90 H 07/28/24 07:30 155/90 H 07/28/24 07:30 155/90 H 07/28/24 07:30 155/90 H 07/28/24 07:30 155/90 H 07/28/24 07:30 155/90 H 07/28/24 07:30 155/90 H 07/28/24 07:00 138/97 07/28/24 07:00 138/97 07/28/24 07:00 138/97 07/28/24 07:00 138/97 07/28/24 07:00 138/97 07/28/24 07:00 138/97 07/28/24 07:00 138/97 07/28/24 07:00 138/97 07/28/24 07:00 108 H 21 97 07/28/24 06:42 88 18 95 07/28/24 06:30 156/66 H 07/28/24 06:06 83 16 95 07/28/24 06:00 118/81 07/28/24 05:45 102 H 26 H 127/66 95 07/28/24 05:13 98 H 07/28/24 05:10 88 18 149/68 H 97 07/28/24 05:00 149/68 H 07/28/24 04:48 36.7 C 100 H 20 144/79 H 97 O2 Del Method 07/28/24 07:42 07/28/24 07:30 07/28/24 07:30 07/28/24 07:30 07/28/24 07:30 07/28/24 07:30 07/28/24 07:30 07/28/24 07:30 07/28/24 07:30 07/28/24 07:30 07/28/24 07:30 07/28/24 07:30 07/28/24 07:30 07/28/24 07:00 07/28/24 07:00 07/28/24 07:00 07/28/24 07:00 07/28/24 07:00 07/28/24 07:00 07/28/24 07:00 07/28/24 07:00 07/28/24 07:00 07/28/24 06:42 07/28/24 06:30 07/28/24 06:06 07/28/24 06:00 07/28/24 05:45 Room Air 07/28/24 05:13 07/28/24 05:10 Room Air 07/28/24 05:00 07/28/24 04:48 Room Air Laboratory Results 07/28/24 07:45 07/28/24 07:45 Code Status & VTE Plan Code Status Full code PG Care Time/CCT Total # of Minutes Spent Total Time Spent with Patient: Total time spent is greater than 50% in coordination of care (as documented) at patient's floor/unit and/or counseling patient: Coding Level of Care Code 21376 INT INP/OBS CARE 375MIN Diagnoses Traumatic hematoma of right lower leg S80.11XA Anticoagulant long-term use Z79.01 Fall W19.XXXA Atrial fibrillation I48.91 Atrial fibrillation type: unspecified Coronary artery disease I25.10 (4) Atrial fibrillation Atrial fibrillation type: unspecified Qualified Code(s): I48.91 - Unspecified atrial fibrillation
[2024-07-28] MEDS ORDERED: GLUCOSE 40% GEL 15 GM TUBE PO PRN (09:25)
[2024-07-28] MEDS ORDERED: GLUCOSE 10 TAB/TUBE PO PRN (09:25)
[2024-07-28] MEDS ORDERED: CARBOHYDRATES FOR HYPOGLYCEMIA PO PRN (09:25)
[2024-07-28] MEDS ORDERED: GLUCAGON FOR INJ 1 MG VIAL SQ PRN (09:25)
[2024-07-28] MEDS ORDERED: ONDANSETRON INJ 2 MG/ML 2 ML VIAL IV PRN ×2 (09:25→09:51)
[2024-07-28] MEDS ORDERED: DEXTROSE 50% 50 ML SYRINGE IV PRN (09:25)
--- NOTE | 2024-07-28 10:16 | Surgery Consultation ---
Date of Consultation July 28, 2024 Assessment & Plan (1) Anticoagulant long-term use: (2) Traumatic hematoma of right lower leg: Plan 79-year-old woman status post fall with hematoma right lower extremity. Nothing to do surgically at this time. Would recommend elevation, alternating heat and cold, observation. Will follow. History of Present Illness Reason for Consultation: hematoma right leg Requesting Physician: Kenji Espinoza MD Attending Physician: Kenji Dimas MD History of Present Illness 79-year-old woman fell at home on her head and right leg. She has atrial fibrillation and is on Xarelto. She developed a painful hematoma on her left lateral lower extremity. She denies fevers or chills. She denies other complaints. Allergies Allergy/AdvReac Type Severity Reaction Status Date / Time [id number] Reductase AdvReac Unknown myalgias, Verified 07/13/24 14:53 Inhibitor hair loss, [Elsfojf-Kqn-Tuy Reductase fatigue Inhibitor] Home Medications Medication Instructions Recorded Confirmed Type atorvastatin 40 mg tablet 40 mg PO HS 10/07/18 07/28/24 History isosorbide mononitrate 30 mg 30 mg PO QAM 10/07/18 07/28/24 History tablet,extended release 24 hr metoprolol succinate 50 mg 50 mg PO QAM 10/30/18 07/28/24 History tablet,extended release 24 hr aspirin 81 mg tablet,delayed 81 mg PO QAM 11/24/18 07/28/24 History release oxybutynin chloride 5 mg tablet 5 mg PO Q8H PRN bladder spasms #20 12/26/20 07/28/24 Rx tabs ascorbic acid (vitamin C) 500 mg 1,500 mg PO DAILY 03/01/21 07/28/24 History tablet cyanocobalamin (vitamin B-12) 50 50 mcg PO DAILY 03/01/21 07/28/24 History mcg tablet (Vitamin B-12) cholecalciferol (vitamin D3) 25 25 mcg PO DAILY 08/01/21 07/28/24 History mcg (1,000 unit) capsule rivaroxaban 20 mg tablet (Xarelto) 20 mg PO DAILY #90 tabs 08/01/21 07/28/24 Rx sodium bicarbonate 650 mg tablet 1,300 mg (2 x 650 mg) PO DAILY #60 01/17/22 07/28/24 Rx tabs blood sugar diagnostic (Contour #100 ea 01/10/24 07/13/24 Rx Next Test Strips) oxycodone 10 mg tablet 10 mg PO Q6H PRN pain #60 tabs 03/05/24 07/28/24 Rx omeprazole 40 mg capsule,delayed 40 mg PO QAM #90 caps 03/16/24 07/28/24 Rx release venlafaxine 150 mg 150 mg PO QAM #30 caps 03/16/24 07/28/24 Rx capsule,extended release 24 hr pen needle, diabetic 32 gauge x #100 ea 03/18/24 07/13/24 Rx 5/32" (BD Elise 2nd Gen Pen Needle) liraglutide 0.6 mg/0.1 mL (18 mg/3 1.8 mg (0.3 mL) subcut DAILY #9 mL 04/21/24 07/28/24 Rx mL) subcutaneous pen injector (Hum[employer] Mobile Dentaltoza 3-Esau) Lantus Solostar U-100 Insulin 100 26 unit (0.26 mL) subcut QPM #15 mL 06/16/24 07/28/24 Rx unit/mL (3 mL) subcutaneous pen (insulin glargine) amlodipine 5 mg tablet 5 mg PO DAILY #90 tabs 06/16/24 07/28/24 Rx losartan 50 mg tablet 100 mg (2 x 50 mg) PO DAILY #180 06/16/24 07/28/24 Rx tabs lidocaine 5 % topical patch 2 patch topical DAILY PRN Pain 07/13/24 07/28/24 History spironolactone 50 mg tablet 25 mg (1/2 x 50 mg) PO DAILY #30 07/17/24 07/28/24 Rx tabs levothyroxine 50 mcg tablet 50 mcg PO DAILY #30 tabs 07/24/24 07/28/24 Rx semaglutide 1 mg/dose (4 mg/3 mL) 1 mg subcut UD 07/28/24 07/28/24 History subcutaneous pen injector (Ozempic) tamsulosin 0.4 mg capsule 0.4 mg PO UD 07/28/24 07/28/24 History Patient History Medical History Lumbar radicular pain Pain of left sacroiliac joint Surgical History Status post spinal surgery History of bladder surgery (12/26/20) cystoscopy w/ uretrhal dilation and transurethral resection of tumor Status post total shoulder arthroplasty Left shoulder replacement (11/21/18): Glidescope #3, ETT 7.5 + PNB at [facility] History of surgery on right wrist History of esophagogastroduodenoscopy (EGD) Multiple History of colonoscopy Multiple History of cataract surgery R/L History of cardiac cath stent x1 (2016) History of left breast biopsy History of thumb surgery right repair ligament and tendons Hx of tonsillectomy with adenoidectomy History of colon surgery Rectocele repair History of hysterectomy History of bilateral tubal ligation History of knee surgery Right History of shoulder surgery x 2 right torn rotator cuff Previous back surgery x 2 Revision L5-S1 and L2-L5 fusion 2014 Family History Brother Alcohol abuse Colorectal cancer Sister Colorectal cancer Lung disease Uterus cancer Fatty liver Ovarian cancer Liver cancer Father Colorectal cancer Lung disease Mother Stroke Grandmother (Maternal) Breast cancer Denies family history of Prostate cancer Myocardial infarction Social History Smoking Status: Never smoker Second Hand Exposure: No; Do You Dip or Chew Tobacco: No; Hx Alcohol Use: No Hx Substance Use: No Preferred Language: Grenadian Communication Ability: Effective Visual Impairment: No Limitations Hearing Ability: Hard of Hearing Line Decorator Required: No Beliefs That Will Affect Care: None marital status: Current Living Situation: Spouse Current Living Situation Comment: lives with spouse and adult grandson current occupational status: retired 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 Feels Safe at Home: Yes Childhood Exposure to Second-Hand Smoke: Yes Diet: regular Diet Comment: regular caffeine: Yes (Coffee x 1-2 per day.) during the past year weight has: increased > 10 lbs Dental Care, Regularly: No Physical Activity Frequency: Does not Exercise Seatbelt Use: always Sunscreen Use: No Assistive Devices: Cane, Denture - Upper, Denture - Lower and Glasses Review of Systems Review of Systems: All systems reviewed & are unremarkable except as noted in HPI & below Physical Exam Constitutional: WD/WN, vitals as above Eyes: PERRL, conjunctivae normal, anicteric sclerae Neck: trachea midline, no thyromegaly Respiratory: normal respiratory effort; no respiratory distress and no labored breathing Cardiovascular: Rate/Rhythm: regular rate and regular rhythm Gastrointestinal (Abdomen): Inspection/Auscultation: abdomen normal to inspection; abdomen not distended Percussion/Palpation: abdomen soft Skin: no rashes, warm and dry Hematoma/ecchymosis right lower extremity, lateral aspect Psychiatric: A+Ox3, euthymic affect Results & Data Vital Signs (Past 12 Hours) Vital Signs Temp Pulse Pulse Resp BP BP Pulse Ox 07/28/24 09:57 15 07/28/24 09:50 105 H 15 07/28/24 09:35 114 H 18 99 07/28/24 09:30 140/81 07/28/24 09:30 140/81 07/28/24 09:30 140/81 07/28/24 09:30 140/81 07/28/24 09:30 140/81 07/28/24 09:30 140/81 07/28/24 09:30 140/81 07/28/24 09:30 140/81 07/28/24 09:30 140/81 07/28/24 09:30 140/81 07/28/24 09:30 140/81 07/28/24 09:30 140/81 07/28/24 09:21 99 H 12 100 07/28/24 09:12 90 13 99 07/28/24 09:00 125/79 07/28/24 09:00 125/79 07/28/24 09:00 125/79 07/28/24 09:00 125/79 07/28/24 09:00 125/79 07/28/24 09:00 125/79 07/28/24 09:00 125/79 07/28/24 09:00 125/79 07/28/24 09:00 125/79 07/28/24 09:00 125/79 07/28/24 09:00 125/79 07/28/24 09:00 125/79 07/28/24 09:00 125/79 07/28/24 09:00 125/79 07/28/24 09:00 103 H 13 98 07/28/24 08:57 93 H 16 99 07/28/24 08:48 95 H 16 99 07/28/24 08:31 99/77 L 07/28/24 08:31 99/77 L 07/28/24 08:31 99/77 L 07/28/24 08:31 99/77 L 07/28/24 08:31 99/77 L 07/28/24 08:31 99/77 L 07/28/24 08:31 99/77 L 07/28/24 08:31 99/77 L 07/28/24 08:31 99/77 L 07/28/24 08:31 99/77 L 07/28/24 08:31 99/77 L 07/28/24 08:31 99/77 L 07/28/24 08:27 95 H 21 98 07/28/24 08:12 100 H 94 07/28/24 08:09 103 H 90 07/28/24 08:00 153/87 H 07/28/24 08:00 153/87 H 07/28/24 08:00 153/87 H 07/28/24 08:00 153/87 H 07/28/24 08:00 153/87 H 07/28/24 08:00 153/87 H 07/28/24 08:00 153/87 H 07/28/24 08:00 153/87 H 07/28/24 07:42 101 H 22 96 07/28/24 07:30 87 19 96 07/28/24 07:30 155/90 H 07/28/24 07:30 155/90 H 07/28/24 07:30 155/90 H 07/28/24 07:30 155/90 H 07/28/24 07:30 155/90 H 07/28/24 07:30 155/90 H 07/28/24 07:30 155/90 H 07/28/24 07:30 155/90 H 07/28/24 07:30 155/90 H 07/28/24 07:30 155/90 H 07/28/24 07:30 155/90 H 07/28/24 07:00 138/97 07/28/24 07:00 138/97 07/28/24 07:00 138/97 07/28/24 07:00 138/97 07/28/24 07:00 138/97 07/28/24 07:00 138/97 07/28/24 07:00 138/97 07/28/24 07:00 138/97 07/28/24 07:00 108 H 21 97 07/28/24 06:42 88 18 95 07/28/24 06:30 156/66 H 07/28/24 06:06 83 16 95 07/28/24 06:00 118/81 07/28/24 05:45 102 H 26 H 127/66 95 07/28/24 05:13 98 H 07/28/24 05:10 88 18 149/68 H 97 07/28/24 05:00 149/68 H 07/28/24 04:48 36.7 C 100 H 20 144/79 H 97 O2 Del Method 07/28/24 09:57 07/28/24 09:50 07/28/24 09:35 07/28/24 09:30 07/28/24 09:30 07/28/24 09:30 07/28/24 09:30 07/28/24 09:30 07/28/24 09:30 07/28/24 09:30 07/28/24 09:30 07/28/24 09:30 07/28/24 09:30 07/28/24 09:30 07/28/24 09:30 07/28/24 09:21 07/28/24 09:12 07/28/24 09:00 07/28/24 09:00 07/28/24 09:00 07/28/24 09:00 07/28/24 09:00 07/28/24 09:00 07/28/24 09:00 07/28/24 09:00 07/28/24 09:00 07/28/24 09:00 07/28/24 09:00 07/28/24 09:00 07/28/24 09:00 07/28/24 09:00 07/28/24 09:00 07/28/24 08:57 07/28/24 08:48 07/28/24 08:31 07/28/24 08:31 07/28/24 08:31 07/28/24 08:31 07/28/24 08:31 07/28/24 08:31 07/28/24 08:31 07/28/24 08:31 07/28/24 08:31 07/28/24 08:31 07/28/24 08:31 07/28/24 08:31 07/28/24 08:27 07/28/24 08:12 07/28/24 08:09 07/28/24 08:00 07/28/24 08:00 07/28/24 08:00 07/28/24 08:00 07/28/24 08:00 07/28/24 08:00 07/28/24 08:00 07/28/24 08:00 07/28/24 07:42 07/28/24 07:30 07/28/24 07:30 07/28/24 07:30 07/28/24 07:30 07/28/24 07:30 07/28/24 07:30 07/28/24 07:30 07/28/24 07:30 07/28/24 07:30 07/28/24 07:30 07/28/24 07:30 07/28/24 07:30 07/28/24 07:00 07/28/24 07:00 07/28/24 07:00 07/28/24 07:00 07/28/24 07:00 07/28/24 07:00 07/28/24 07:00 07/28/24 07:00 07/28/24 07:00 07/28/24 06:42 07/28/24 06:30 07/28/24 06:06 07/28/24 06:00 07/28/24 05:45 Room Air 07/28/24 05:13 07/28/24 05:10 Room Air 07/28/24 05:00 07/28/24 04:48 Room Air Laboratory Results 07/28/24 Range/Units 07:45 WBC 8.87 (4.8-10.8) K/ul RBC 4.58 (4.20-5.40) M/uL Hgb 14.3 (12.0-16.0) g/dl Hct 43.1 (37.0-47.0) % MCV 94.1 (80.0-100.0) fL MCH 31.2 (25.0-34.0) pg MCHC 33.2 (32.0-36.0) g/dL RDW Std Deviation 46.3 (36.4-46.3) fL RDW Coeff of Bebo 13.5 (11.5-14.5) % Plt Count 152 (130-400) K/uL MPV 13.0 H (9.4-12.4) fL Immature Gran % (Auto) 0.6 % Neut % (Auto) 66.6 % Lymph % (Auto) 24.0 % Dawson % (Auto) 7.7 % Eos % (Auto) 0.9 % Baso % (Auto) 0.2 % Neut # (Auto) 5.91 (1.40-6.50) K/uL Lymph # (Auto) 2.13 (1.20-3.40) K/uL Dawson # (Auto) 0.68 H (0.11-0.59) K/uL Eos # (Auto) 0.08 (0.00-0.50) K/uL Baso # (Auto) 0.02 (0.00-0.20) K/uL Immature Gran # (Auto) 0.05 (0.01-0.20) K/uL PT 14.6 H (9.0-12.0) Seconds INR 1.4 H (0.9-1.1) APTT 35 H (21-31) Seconds PTT Ratio 1.3 Sodium 138 (136-145) mmol/L Potassium 4.7 (3.5-5.1) mmol/L Chloride 103 (98-107) mmol/L Carbon Dioxide 30 (21-32) mmol/L Anion Gap 5 (3-11) BUN 33 H (6-23) mg/dl Creatinine 1.30 H (0.6-1.2) mg/dl Est Cr Clr Drug Dosing 33.1 ml/min eGFR 41.57 BUN/Creatinine Ratio 25.4 H (10-20) Glucose 156 H (70-99(Fasting)) mg/dl Calcium 9.4 (8.6-10.3) mg/dl
[2024-07-28] MEDS: SPIRONOLACTONE 25 MG TAB PO SCH (10:21)
[2024-07-28] MEDS: METOPROLOL SUCC 50MG EXT REL TAB PO SCH (10:21)
[2024-07-28] MEDS: VENLAFAXINE HCL XR 150 MG CAPXR PO SCH (10:21)
[2024-07-28] MEDS: ASCORBIC ACID 500 MG TAB PO SCH (10:21)
[2024-07-28] MEDS: ISOSORBIDE MONO EXTENDED REL 30 MG TABCR PO SCH (10:22)
[2024-07-28] MEDS: PANTOprazole 40 MG TAB PO SCH (10:22)
[2024-07-28] MEDS: LOSARTAN POTASSIUM 50 MG TAB PO SCH (10:22)
[2024-07-28] MEDS: LEVOTHYROXINE SODIUM 50 MCG TABLET PO SCH (10:22)
[2024-07-28] MEDS: SODIUM BICARBONATE 650 MG TAB PO SCH (10:22)
[2024-07-28] MEDS: amLODIPine BESYLATE 5 MG TAB PO SCH (10:22)
[2024-07-28] MEDS: CHOLECALCIFEROL 25 MCG (1000 UNITS) TAB PO SCH (10:23)
[2024-07-28] MEDS: INSULIN ASPART PER UNIT CHARGE SC SCH (10:32)
[2024-07-28] MEDS: CYANOCOBALAMIN (B-12) 100 MCG TABLET PO SCH (10:32)
[2024-07-28] MEDS: HYDROmorphone INJ 1 MG/ML SYRINGE IV PRN (15:50)
[2024-07-28] MEDS: LANTUS PER UNIT CHARGE SQ SCH (21:29)
[2024-07-29 04:04] VITALS: O2SAT 96
[2024-07-29 09:18] VITALS: PULSE 79; RESP 15; TEMP 97.7
[2024-07-29 09:21] VITALS: BP 132/84
[2024-07-29 09:59] LABS: Basophils # (auto) 0.03 K/uL (0.00-0.20); Basophils % (auto) 0.3 %; Eosinophils % (auto) 3.5 %; Hematocrit (blood only) 44.1 % (37.0-47.0); Hemoglobin 14.1 g/dl (12.0-16.0); Immature Granulocytes # (auto) 0.08 K/uL (0.01-0.20); Immature Granulocytes % (auto) 0.9 %; Lymphocytes # (auto) 2.26 K/uL (1.20-3.40); Lymphocytes % (auto) 26.2 %; Mean Corpuscular Hemoglobin 30.5 pg (25.0-34.0); Mean Corpuscular Volume 95.2 fL (80.0-100.0); Mean Platelet Volume 12.4 fL (9.4-12.4); Monocytes # (auto) 0.57 K/uL (0.11-0.59); Monocytes % (auto) 6.6 %; Neutrophils % (auto) 62.5 %; Platelet Count 163 K/uL (130-400); RDW Coefficient of Variation 13.5 % (11.5-14.5); RDW Standard Deviation 47.8 fL (36.4-46.3); Red Blood Count 4.63 M/uL (4.20-5.40); White Blood Count 8.64 K/ul (4.8-10.8)
[2024-07-29 10:20] LABS: BUN Creatinine Ratio 19.3 (10-20); Calcium 9.4 mg/dl (8.6-10.3); Creatinine Clr Calc Pharmacy 31.9 ml/min; Potassium 4.9 mmol/L (3.5-5.1)
--- NOTE | 2024-07-29 11:48 | Discharge Summary ---
Discharge Summary Date of Service July 29, 2024 Principal Dx & Hospital Course #1 = Principal Diagnosis (1) Traumatic hematoma of right lower leg: The patient unfortunately suffered a mechanical fall on July 28 resulting in subcutaneous hematoma formation of the right lower extremity with associated considerable pain. General surgery consultation appreciated. No drainage procedure indicated. Xarelto was placed on hold on admission and will be rest arted tomorrow, July 30 (2) Anticoagulant long-term use: She takes Xarelto chronically due to her chronic atrial fibrillation. Xarelto was held on admission and will be restarted tomorrow, July 30 (3) Fall: Mechanical. She denies syncope (4) Atrial fibrillation: Chronic. Rate control measures. Xarelto was held while hospitalized. Telemetry (5) Coronary artery disease: Stable. Continue current medical management. Telemetry Plan Home todayJuly 29 Admission HPI Per Admitting Provider 79-year-old white female on chronic Xarelto therapy for chronic atrial fibrillation. She suffered a mechanical fall today with abrasion of the right lower extremity without fracture. Unfortunately she has developed a large subcutaneous hematoma of the right lower extremity that is causing considerable pain. This may need to be drained by surgery. Consultation requested and pending. She is requiring parenteral narcotics for pain control at this time. She is admitted for further management. She denies syncope or chest pain. She denies palpitations Discharge Exam General-alert and oriented x3, no fever, no chills. Tearful from right lower extremity pain HEENT-head atraumatic and normocephalic, pupils equal and reactive to light, extraocular muscles intact Neck-no lymphadenopathy or thyromegaly, trachea midline Chest-clear to auscultation. No rales, wheezing or rhonchi Cardiac-irregular rhythm. Controlled rate. Normal S1 and S2 Abdomen-normal bowel sounds, no hepatosplenomegaly Extremities-superficial abrasions noted bilaterally below both knees. She has a large subcutaneous hematoma on the lateral aspect of the right lower leg. Neuro-cranial nerves II through XII intact, motor and sensory function within normal limits, strength symmetrical, no focal deficits Psych-normal affect, normal mood. Tearful however from right lower extremity pain Discharge Plan Discharge Items Patient Disposition: Home - Self-Care Reason For Visit: LEG HEMATOMA Discharge Diagnosis: Mechanical fall, right lower extremity contusion and superficial hematoma below the right knee Activity: Resume your previous activity Non-emergency contact: Primary Care Provider Call non-emergency contact if: your symptoms worsen Follow-up/Referrals: Jacqueline Alarcon DO [Primary Care Provider] - Diet: Carb Consistent or DM2 and Heart Healthy Addtl Attending Provider Instructions: May resume taking Xarelto tomorrow, July 30. A prescription for oxycodone pain medication has been sent to your pharmacy. Use the oxycodone every 6 hours as needed to control any pain Pending Studies at Discharge: No Stand-Alone Forms: My [facility] [employer], Smoking Cessation Medications and DC Order Prescriptions: New oxycodone 5 mg tablet 5 mg PO Q6H PRN (Reason: pain) Qty: 20 0RF Continued atorvastatin 40 mg tablet 40 mg PO HS isosorbide mononitrate 30 mg tablet extended release 24 hr 30 mg PO QAM (DME) Contour Next Test Strips Strip See Rx Instructions .ROUTE .MEDSUPPLY Qty: 100 5RF Rx Instructions: TEST 3 TIMES DAILY oxycodone 10 mg tablet 10 mg PO Q6H PRN (Reason: pain) Qty: 60 0RF Rx Instructions: last filled 03/05 15 day supply (DME) pen needle, diabetic [BD Elise 2nd Gen Pen Needle] 32 gauge x 5/32" needle See Rx Instructions .Route Qty: 100 5RF Rx Instructions: Using 2 times per day Victoza 3-Esau 0.6 mg/0.1 mL (18 mg/3 mL) pen injector 1.8 mg subcut DAILY Qty: 9 2RF insulin glargine [Lantus Solostar U-100 Insulin] 100 unit/mL (3 mL) insulin pen 26 unit SQ QPM Qty: 15 5RF amlodipine 5 mg tablet 5 mg PO DAILY Qty: 90 3RF losartan 50 mg tablet 100 mg PO DAILY Qty: 180 1RF spironolactone 50 mg tablet 25 mg PO DAILY Qty: 30 2RF levothyroxine 50 mcg tablet 50 mcg PO DAILY Qty: 30 2RF metoprolol succinate 50 mg tablet extended release 24 hr 50 mg PO QAM aspirin 81 mg tablet,delayed release (DR/EC) 81 mg PO QAM Rx Instructions: otc unable to verify cholecalciferol (vitamin D3) 25 mcg (1,000 unit) capsule 25 mcg PO DAILY Rx Instructions: otc unable to verify Xarelto 20 mg tablet 20 mg PO DAILY Qty: 90 1RF Rx Instructions: must administer with evening meal sodium bicarbonate 650 mg tablet 1,300 mg PO DAILY Qty: 60 2RF Rx Instructions: Take 1300 mg the evening before and the day of intravesical therapy. omeprazole 40 mg capsule,delayed release(DR/EC) 40 mg PO QAM Qty: 90 1RF venlafaxine 150 mg capsule,extended release 24hr 150 mg PO QAM Qty: 30 3RF lidocaine 5 % adhesive patch,medicated 2 patch topical DAILY PRN (Reason: Pain) Rx Instructions: leave on most painful area for up to 12 hrs otc unable to verify Vitamin B-12 50 mcg Tablet 50 mcg PO DAILY Rx Instructions: otc unable to verify ascorbic acid (vitamin C) 500 mg Tablet 1,500 mg PO DAILY Rx Instructions: otc unable to verify oxybutynin chloride 5 mg tablet 5 mg PO Q8H PRN (Reason: bladder spasms) Qty: 20 0RF Rx Instructions: no fill history available tamsulosin 0.4 mg capsule 0.4 mg PO UD Rx Instructions: 0.4 mg po hs. no fill history available Ozempic 1 mg/dose (4 mg/3 mL) pen injector 1 mg subcut UD Rx Instructions: 1 mg subcut wk. No fill history available Discharge Orders: Discharge Order (Routine); Ordered 07/29/24 Ordered By: Kenji Dimas Admission Data Admit Date/Time: 07/28/24 08:50 Attending Provider: Kenji Dimas Admit Provider: Kenji Dimas Primary Care Provider: Jacqueline Alarcon Other Providers: Kenji Dimas; [facility] Stay Data Consultations 07/28/24 07:12 ED Decision to Admit Stat 07/28/24 09:25 Consult General Surgery Routine Diagnostic Imagining Performed 07/28/24 05:13 CT cervical spine wo con Stat CT head/brain wo con Stat Pending Results Patient Have Any Pending Studies at Discharge: No Discharge Instructions Given to Patient (Per Discharging Provider) May resume taking Xarelto tomorrow, July 30. A prescription for oxycodone pain medication has been sent to your pharmacy. Use the oxycodone every 6 hours as needed to control any pain Total Time Total Time Spent Total Time Spent (In Minutes): 45 minutes Coding Level of Care Code 10604 INP/OBS DISCH >30 MIN Diagnoses Traumatic hematoma of right lower leg S80.11XA Anticoagulant long-term use Z79.01 Fall W19.XXXA Atrial fibrillation I48.91 Atrial fibrillation type: unspecified Coronary artery disease I25.10
== END 2024-07-29 12:54 | disposition home or self-care (01) | DRG 605 ==
LOC: SUATTDRO → ED 04:47 → EDINP 08:50 → 2W 09:40

== ENCOUNTER 2025-03-26 06:32 | Observation (INO) ==
--- NOTE | 2025-02-23 16:16 | PAT Medication Instructions ---
Medication Instructions Date of Service February 23, 2025 Home Medications Medication Instructions Recorded blood sugar diagnostic (Contour #100 ea 01/10/24 Next Test Strips) pen needle, diabetic 32 gauge x #100 ea 03/18/24" (BD Elise 2nd Gen Pen Needle) venlafaxine 150 mg 150 mg PO QAM #90 caps 09/01/24 capsule,extended release 24 hr omeprazole 40 mg capsule,delayed 40 mg PO QAM #90 caps 09/30/24 release rivaroxaban 20 mg tablet (Xarelto) 20 mg PO QAM #90 tabs 10/22/24 Lantus Solostar U-100 Insulin 100 22 unit (0.22 mL) subcut QPM #15 mL 11/23/24 unit/mL (3 mL) subcutaneous pen (insulin glargine) levothyroxine 50 mcg tablet 50 mcg PO QAM #90 tabs 12/03/24 losartan 50 mg tablet 50 mg PO QAM #90 tabs 01/04/25 oxycodone 5 mg tablet 5 mg PO Q6H PRN pain #20 tabs 01/29/25 spironolactone 50 mg tablet 25 mg (1/2 x 50 mg) PO QAM #90 tabs 01/29/25 atorvastatin 40 mg tablet 40 mg PO HS isosorbide mononitrate 30 mg tablet,extended release 24 hr 30 mg PO QAM metoprolol succinate 50 mg tablet,extended release 24 hr 50 mg PO QAM aspirin 81 mg tablet,delayed release 81 mg PO QAM ascorbic acid (vitamin C) 500 mg tablet 1,500 mg PO DAILY cyanocobalamin (vitamin B-12) 50 mcg tablet (Vitamin B-12) 50 mcg PO DAILY cholecalciferol (vitamin D3) 25 mcg (1,000 unit) capsule 25 mcg PO DAILY lidocaine 5 % topical patch 1 patch topical UD PRN Pain venlafaxine 150 mg capsule,extended release 24 hr 150 mg PO QAM amlodipine 5 mg tablet 5 mg PO QAM omeprazole 40 mg capsule,delayed release 40 mg PO QAM rivaroxaban 20 mg tablet (Xarelto) 20 mg PO QAM Lantus Solostar U-100 Insulin 100 unit/mL (3 mL) subcutaneous pen (insulin glargine) 22 unit (0.22 mL) subcut QPM levothyroxine 50 mcg tablet 50 mcg PO QAM losartan 50 mg tablet 50 mg PO QAM oxycodone 5 mg tablet 5 mg PO Q6H PRN pain spironolactone 50 mg tablet 25 mg (1/2 x 50 mg) PO QAM Continue as directed lidocaine 5 % topical patch 1 patch topical UD PRN Pain (just do not put on or near surgical site) ASK your prescriber and surgeon rivaroxaban 20 mg tablet (Xarelto) 20 mg PO QAM (in order to get spinal anesthesia DOS- must be off Xarelto/rivaroxaban for at least 72 hours) DO NOT take the morning of surgery ascorbic acid (vitamin C) 500 mg tablet 1,500 mg PO DAILY cyanocobalamin (vitamin B-12) 50 mcg tablet (Vitamin B-12) 50 mcg PO DAILY cholecalciferol (vitamin D3) 25 mcg (1,000 unit) capsule 25 mcg PO DAILY losartan 50 mg tablet 50 mg PO QAM spironolactone 50 mg tablet 25 mg (1/2 x 50 mg) PO QAM Take morning of surgery With a small sip of water, OTHERWISE NOTHING TO EAT OR DRINK AFTER MIDNIGHT: isosorbide mononitrate 30 mg tablet,extended release 24 hr 30 mg PO QAM metoprolol succinate 50 mg tablet,extended release 24 hr 50 mg PO QAM aspirin 81 mg tablet,delayed release 81 mg PO QAM (unless surgeon directed otherwise) venlafaxine 150 mg capsule,extended release 24 hr 150 mg PO QAM amlodipine 5 mg tablet 5 mg PO QAM omeprazole 40 mg capsule,delayed release 40 mg PO QAM levothyroxine 50 mcg tablet 50 mcg PO QAM oxycodone 5 mg tablet 5 mg PO Q6H PRN pain (if needed) Take evening before surgery atorvastatin 40 mg tablet 40 mg PO HS oxycodone 5 mg tablet 5 mg PO Q6H PRN pain (if needed) Scottie Solmaria doloresar U-100 Insulin 100 unit/mL (3 mL) subcutaneous pen (insulin glargine) 22 unit (0.22 mL) subcut QPM Other Notes If you have any questions please call us at [phone] or [phone] or [phone] or [phone]
--- NOTE | 2025-02-26 12:36 | Anesthesiology Consultation ---
Date of Service February 26, 2025 Assessment & Plan (1) Encounter for pre-operative examination: Plan - awaiting 03/04/2025 [place] stress test and ultimate [facility] pre-operative determination. If stress test is unremarkable and patient is cleared for surgery by cardiology, she can proceed. - check BSG am DOS. - difficult intubation: s/p cervical spine surgeries. - Outpatient joint assessment: Patient is currently scheduled for inpatient pathway. If re-evaluated and patient/surgeon requests outpatient pathway, patient is not a candidate for outpatient joint program. Chart Review Chart Review: Patient seen in Pre Admission Testing Teaching & Discussion Pre-Anesthesia Teaching/Discussion Notes: Instructed NPO after midnight before s urgery, except medications with 15 cc of water. Medication instructions provided according to the PAT guidelines. History Surgery Operation Date: 03/26/25 08:00 Proposed Procedures p Right Total Hip Arthroplasty Anterior - Amor Dawn, Height/Weight Height: 4 ft 11 in Weight: 83 kg Allergies Allergy/AdvReac Type Severity Reaction Status Date / Time Silqtpp-LWS-BuB Reductase AdvReac Unknown myalgias, Verified 02/22/25 08:05 Inhibitor hair loss, [Kyhrjqc-Qwc-Nbe Reductase fatigue Inhibitor] Medications Home Medications Medication Instructions Recorded Confirmed Last Taken atorvastatin 40 mg tablet 40 mg PO HS 10/07/18 02/22/25 09/24/24 isosorbide mononitrate 30 mg 30 mg PO [facility] 10/07/18 02/22/25 09/24/24 tablet,extended release 24 hr metoprolol succinate 50 mg 50 mg PO [facility] 10/30/18 02/22/25 09/24/24 tablet,extended release 24 hr aspirin 81 mg tablet,delayed 81 mg PO QA 11/24/18 02/22/25 09/24/24 release ascorbic acid (vitamin C) 500 mg 1,500 mg PO DAILY 03/01/21 02/22/25 09/24/24 tablet cyanocobalamin (vitamin B-12) 50 50 mcg PO DAILY 03/01/21 02/22/25 09/24/24 mcg tablet (Vitamin B-12) cholecalciferol (vitamin D3) 25 25 mcg PO DAILY 08/01/21 02/22/25 09/24/24 mcg (1,000 unit) capsule blood sugar diagnostic (Contour #100 ea 01/10/24 01/13/25 Unknown Next Test Strips) pen needle, diabetic 32 gauge x #100 ea 03/18/24 01/13/25 Unknown 32" (BD Elise 2nd Gen Pen Needle) lidocaine 5 % topical patch 1 patch topical UD PRN Pain 07/13/24 02/22/25 09/24/24 venlafaxine 150 mg 150 mg PO QAM #90 caps 09/01/24 02/22/25 09/24/24 capsule,extended release 24 hr amlodipine 5 mg tablet 5 mg PO QAM 09/16/24 02/22/25 09/24/24 omeprazole 40 mg capsule,delayed 40 mg PO QAM #90 caps 09/30/24 02/22/25 Unknown release rivaroxaban 20 mg tablet (Xarelto) 20 mg PO QAM #90 tabs 10/22/24 02/22/25 Unknown Lantus Solostar U-100 Insulin 100 22 unit (0.22 mL) subcut QPM #15 mL 11/23/24 02/22/25 Unknown unit/mL (3 mL) subcutaneous pen (insulin glargine) levothyroxine 50 mcg tablet 50 mcg PO QAM #90 tabs 12/03/24 02/22/25 Unknown losartan 50 mg tablet 50 mg PO QAM #90 tabs 01/04/25 02/22/25 Unknown oxycodone 5 mg tablet 5 mg PO Q6H PRN pain #20 tabs 01/29/25 02/22/25 Unknown spironolactone 50 mg tablet 25 mg (1/2 x 50 mg) PO QAM #90 tabs 01/29/25 02/22/25 Unknown Past Medical History Medical History Anticoagulant long-term use Anxiety Atrial fibrillation dx 2023 / no hx cardioversion; f/u ph daniel cardio Cervicalgia "stemming from spur in right shoulder, no limits with ROM" Chest wall pain, chronic Chronic venous insufficiency Cirrhosis only know fatty liver per pt Coronary artery disease stent x1 (2015) Follows with [facility] DDD (degenerative disc disease), cervical DDD (degenerative disc disease), lumbar DDD (degenerative disc disease), thoracic Depression Diabetes IDDM Diffuse myofascial pain syndrome Fatty liver Fibromyalgia Gastroparesis GERD (gastroesophageal reflux disease) controlled, stable per pt History of bladder cancer approx 2022 - hx 3 kinds of tx including chemo into bladder. History of COVID-19 pt isn't sure when , years ago. no hx hospitalization; resolved History of gastritis intermittent-no recent issues per pt HTN (hypertension) controlled, stable per pt Hx of rosacea Hx of supraventricular tachycardia 2018 Hyperlipidemia Hypothyroidism Iron deficiency hx, found at time of dehydration and low thyroid problem dx approx May 2024 ([place] eval). pt not sure current level of iron. Pt reports hasn't had blood work since then. Lumbar radicular pain Lung nodule monitored in the past/didn't grow. Pt not sure if still needs monitored/last check approx August 2024 [facility] cxr. Osteoarthritis Pain of left sacroiliac joint used to get shots for every 3 months Poor historian at times Sleep apnea device was recommended/pt declined. Trouble swallowing "not as bad as it used to be" Patient denies h/o stroke, seizures, heart attack, heart failure, blood clots/DVTs or blood transfusions. Exercise / Class Metabolic Activity III < 4 Walking/Shop/Light housework (ambulates with cane, occ. intermittent chest discomfort with usual activities ongoing for several months-upcoming stress test ordered by cardioluis today in clinic) Past Family History Family History Brother Alcohol abuse Colorectal cancer Sister Colorectal cancer Lung disease Uterus cancer Fatty liver Ovarian cancer Liver cancer Father Colorectal cancer Lung disease Mother Stroke Grandmother (Maternal) Breast cancer Denies family history of Prostate cancer Myocardial infarction Past Surgical History Surgical History History of bilateral tubal ligation History of bladder surgery (12/26/20) cystoscopy w/ urethral dilation and transurethral resection of tumor History of cardiac cath stent x1 (2015), ph [facility]iel History of cataract surgery R/L History of colon surgery Rectocele repair History of colonoscopy Multiple History of esophagogastroduodenoscopy (EGD) Multiple History of hysterectomy History of knee surgery Right History of left breast biopsy History of shoulder surgery x 2 right torn rotator cuff History of surgery on lower extremity I&D hematoma rt leg, in office, w/ amos resendiz History of surgery on right wrist History of thumb surgery right repair ligament and tendons Hx of tonsillectomy with adenoidectomy Previous back surgery x 2 Revision L5-S1 and L2-L5 fusion 2015 Status post total shoulder arthroplasty Left shoulder replacement (11/21/18): Glidescope #3, ETT 7.5 + PNB at [facility] Past Anesthesia History Difficult Airway and No Family Hx of Anesthesia Complications History of PONV No Hx of PONV and No Hx of Motion Sickness Social History Smoking Status: Never smoker Do You Dip or Chew Tobacco: No Hx Alcohol Use: No Hx Substance Use: No substance use type: does not use Review of Systems Patient denies shortness of breath, dyspnea on exertion, fever, chills, cough, wheezing, or palpitations. Physical Exam Vital Signs Vitals BP 128/62 P 80 TEMP 98.2 SP02 96% on RA RESP 18 Physical Patient resting comfortably in chair in no acute distress, alert and oriented, responding appropriately throughout visit Full cervical extension range of motion without pain TMD 3.5 finger breadths Mallampati Score 2 Dentition: intact, denies chipped or loose teeth, caps/crowns, implants or bridges Lungs: normal respiratory effort. Good air movement, clear throughout to auscultation, no adventitious breath sounds Cardiac: regular rate and rhythm, no murmurs noted Carotid arteries: negative bruit bilat Lab Results Anesthesia Preop Results Results Anesthesia Widget: WBC 6.11 K/ul (4.8-10.8) 02/26/25 Hgb 14.3 g/dl (12.0-16.0) 02/26/25 Hct 45.4 % (37.0-47.0) 02/26/25 Plt 149 K/uL (130-400) 02/26/25 Na 137 mmol/L (136-145) 02/26/25 K 4.7 mmol/L (3.5-5.1) 02/26/25 Cl 103 mmol/L (98-107) 02/26/25 CO2 29 mmol/L (21-32) 02/26/25 BUN 25 mg/dl (6-23) H 02/26/25 Creat 1.20 mg/dl (0.6-1.2) 02/26/25 Glucose Level 163 mg/dl (70-99(Fasting)) H 02/26/25 PT 19.3 Seconds (9.0-12.0) H 02/26/25 PTT 57 Seconds (21-31) H 02/26/25 INR 1.9 (0.9-1.1) H 02/26/25 HA1c 7.4 % (4.5-5.6) H 02/26/25 Blood Type O Positive 02/26/25 Antibody Screen NEGATIVE 02/26/25 Testing Electrocardiogram Date: 02/26/25 Sinus rhythm with 1st degree AV block, rate 78 bpm Right axis deviation Echocardiogram Date: 09/13/23 EF 65% No obvious RWMA Mild cLVH Moderately dilated LA Stress Test Date: 06/02/19 MPHR 90% Negative dobutamine stress echo and ECG for myocardial ischemia EF 63% Moderate cLVH No evidence of wall motion abnormalities Cervical Spine Date: 07/28/24 1.No acute fracture or subluxation in the cervical spine. 2.Cervical spondylosis. Other Testing Chest CT 01/05/25 1. No change in several pulmonary nodules since earlier CTs dating back to February 16, 2021. These are benign given stability. No suspicious pulmonary nodules. 2. No change in appearance of the chest. No acute intrathoracic findings. Liver US 08/05/24 1. Cirrhotic morphology of the liver redemonstrated. 2. No unremarkable gallbladder. 3. No biliary ductal dilation. Head CT 07/28/24 1. No evidence of acute intracranial abnormality is demonstrated. 2. Chronic microvascular ischemic changes. 3. Cerebral atrophy.
--- NOTE | 2025-03-24 15:23 | History & Physical Report ---
Date of Service March 24, 2025 Assessment & Plan (1) Osteoarthritis: We will proceed with a right anterior total hip arthroplasty. Postoperatively, she will be started on Xarelto for DVT prophylaxis and kept overnight in the hospital for postop medical management. She plans to have the hospital set up home health after discharge. History of Present Illness Chief Complaint: Osteoarthritis of the right hip. Primary Care Provider: Jacqueline Alarcon DO Hylton is a pleasant 79-year-old female who has been dealing with chronic increasing right hip and knee pain. She has been receiving injections from Dr. Carrillo for both hips. Intraarticular injections have helped a lot. Unfortunately, they are no longer helping with her right hip. She has a lot of groin pain and it radiates down her leg towards the knee. She ambulates with a cane. X-rays and clinical exam have been diagnostic for advanced arthritis of the right hip. After failing conservative treatment, she has elected proceed with a right anterior total of arthroplasty. Allergies Allergy/AdvReac Type Severity Reaction Status Date / Time [id number] Reductase AdvReac Unknown myalgias, Verified 02/22/25 08:05 Inhibitor hair loss, [Inyrlbz-Eol-Int Reductase fatigue Inhibitor] Home Medications Medication Instructions Recorded Confirmed Type atorvastatin 40 mg tablet 40 mg PO HS 10/07/18 02/22/25 History isosorbide mononitrate 30 mg 30 mg PO QAM 10/07/18 02/22/25 History tablet,extended release 24 hr metoprolol succinate 50 mg 50 mg PO QAM 10/30/18 02/22/25 History tablet,extended release 24 hr aspirin 81 mg tablet,delayed 81 mg PO QAM 11/24/18 02/22/25 History release ascorbic acid (vitamin C) 500 mg 1,500 mg PO DAILY 03/01/21 02/22/25 History tablet cyanocobalamin (vitamin B-12) 50 50 mcg PO DAILY 03/01/21 02/22/25 History mcg tablet (Vitamin B-12) cholecalciferol (vitamin D3) 25 25 mcg PO DAILY 08/01/21 02/22/25 History mcg (1,000 unit) capsule blood sugar diagnostic (Contour #100 ea 01/10/24 01/13/25 Rx Next Test Strips) pen needle, diabetic 32 gauge x #100 ea 03/18/24 01/13/25 Rx 5/32" (BD Elise 2nd Gen Pen Needle) lidocaine 5 % topical patch 1 patch topical UD PRN Pain 07/13/24 02/22/25 History venlafaxine 150 mg 150 mg PO QAM #90 caps 09/01/24 02/22/25 Rx capsule,extended release 24 hr amlodipine 5 mg tablet 5 mg PO QAM 09/16/24 02/22/25 History omeprazole 40 mg capsule,delayed 40 mg PO QAM #90 caps 09/30/24 02/22/25 Rx release rivaroxaban 20 mg tablet (Xarelto) 20 mg PO QAM #90 tabs 10/22/24 02/22/25 Rx Lantus Solostar U-100 Insulin 100 22 unit (0.22 mL) subcut QPM #15 mL 11/23/24 02/22/25 Rx unit/mL (3 mL) subcutaneous pen (insulin glargine) levothyroxine 50 mcg tablet 50 mcg PO QAM #90 tabs 12/03/24 02/22/25 Rx losartan 50 mg tablet 50 mg PO QAM #90 tabs 01/04/25 02/22/25 Rx spironolactone 50 mg tablet 25 mg (1/2 x 50 mg) PO QAM #90 tabs 01/29/25 02/22/25 Rx oxycodone 5 mg tablet 5 mg PO Q6H PRN pain #20 tabs 03/18/25 Rx Past Med/Surg History Problem List ЕКАТЕРИНА (iron deficiency anemia) Iron deficiency Hypothyroidism Fibromyalgia Obstructive sleep apnea Bladder cancer (12/2020) Cirrhosis Noted CT chest Jun 2023 Uncontrolled type 2 diabetes mellitus with hyperglycemia Neurogenic claudication due to lumbar spinal stenosis Pulmonary nodule Chest wall pain Chronic issue, takes isosorbide Anxiety (Chronic) Diffuse myofascial pain syndrome (Chronic) Cervicalgia (Chronic) Rosacea Gastritis GERD (gastroesophageal reflux disease) Gastroparesis (Chronic) Sacroiliitis Lumbosacral spondylosis Chronic venous insufficiency Lumbar post-laminectomy syndrome Depression Hyperlipidemia Osteoarthritis Paroxysmal supraventricular tachycardia Remote hx 9 beat run noted on Holter per cardiology in 2019 Thrombocytopenia Vitamin D deficiency Lumbar facet joint syndrome Fatty liver Diabetes IDDM Hypertension Lumbar spinal stenosis Medical History Hx of rosacea Cervicalgia "stemming from spur in right shoulder, no limits with ROM" History of COVID-19 pt isn't sure when , years ago. no hx hospitalization; resolved History of bladder cancer approx 2022 - hx 3 kinds of tx including chemo into bladder. Hx of supraventricular tachycardia 2018 Chest wall pain, chronic Chronic venous insufficiency Depression Anxiety Hyperlipidemia HTN (hypertension) controlled, stable per pt History of gastritis intermittent-no recent issues per pt Gastroparesis GERD (gastroesophageal reflux disease) controlled, stable per pt Hypothyroidism Osteoarthritis Cirrhosis only know fatty liver per pt Fatty liver Poor historian at times Diabetes IDDM Diffuse myofascial pain syndrome DDD (degenerative disc disease), thoracic DDD (degenerative disc disease), cervical DDD (degenerative disc disease), lumbar Fibromyalgia Lung nodule monitored in the past/didn't grow. Pt not sure if still needs monitored/last check approx August 2024 [facility] cxr. Sleep apnea device was recommended/pt declined. Iron deficiency hx, found at time of dehydration and low thyroid problem dx approx May 2024 ([place] eval). pt not sure current level of iron. Pt reports hasn't had blood work since then. Trouble swallowing "not as bad as it used to be" Anticoagulant long-term use Atrial fibrillation dx 2023 / no hx cardioversion; f/u [facility] sanchez cardio Coronary artery disease stent x1 (2015) Follows with [facility] Lumbar radicular pain Pain of left sacroiliac joint used to get shots for every 3 months Surgical History History of surgery on lower extremity I&D hematoma rt leg, in office, w/ dr. caceres de History of bladder surgery (12/26/20) cystoscopy w/ urethral dilation and transurethral resection of tumor Status post total shoulder arthroplasty Left shoulder replacement (11/21/18): Glidescope #3, ETT 7.5 + PNB at [facility] History of surgery on right wrist History of esophagogastroduodenoscopy (EGD) Multiple History of colonoscopy Multiple History of cataract surgery R/L History of cardiac cath stent x1 (2015), lori sanchez History of left breast biopsy History of thumb surgery right repair ligament and tendons Hx of tonsillectomy with adenoidectomy History of colon surgery Rectocele repair History of hysterectomy History of bilateral tubal ligation History of knee surgery Right History of shoulder surgery x 2 right torn rotator cuff Previous back surgery x 2 Revision L5-S1 and L2-L5 fusion 2014 Family History Brother Alcohol abuse Colorectal cancer Sister Colorectal cancer Lung disease Uterus cancer Fatty liver Ovarian cancer Liver cancer Father Colorectal cancer Lung disease Mother Stroke Grandmother (Maternal) Breast cancer Denies family history of Prostate cancer Myocardial infarction Social History Smoking Status: Never smoker Second Hand Exposure: Yes (hx growing up); Do You Dip or Chew Tobacco: No; Hx Alcohol Use: No Hx Substance Use: No Preferred Language: Vietnamese Communication Ability: Effective Communication Ability Comment: [place] at times Visual Impairment: No Limitations Hearing Ability: Hard of Hearing Extension Forester Required: No Beliefs That Will Affect Care: None marital status: Current Living Situation: Spouse Current Living Situation Comment: lives with spouse and adult grandson current occupational status: retired 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 Physical Exam On physical exam of the right hip, she has decreased range of motion. She has pain with internal/external rotation. All of her pain is located in the groin.. Constitutional WD/WN, vitals as above Eyes PERRL, conjunctivae normal, anicteric sclerae ENMT external ear and nose normal, oropharynx normal Neck trachea midline, no thyromegaly Respiratory normal respiratory effort, lungs clear to auscultation Cardiovascular RRR, no murmur, no edema Gastrointestinal (Abdomen) normal bowel sounds, soft, nontender, no hepatosplenomegaly Skin no rashes, warm and dry Psychiatric A+Ox3, euthymic affect Results & Data Results & Data Laboratory Results . Diagnostic Findings . PG Care Time/CCT Total # of Minutes Spent Total Time Spent with Patient: Total time spent is greater than 50% in coordination of care (as documented) at patient's floor/unit and/or counseling patient: Coding Level of Care Code None Diagnoses Osteoarthritis M19.90
[2025-03-26] MEDS ORDERED: ROPIVACAINE 0.5% 5 MG/ML 30 ML VIAL ONE (06:33)
[2025-03-26] MEDS ORDERED: MIDAZOLAM HCL 1 MG/ML 2ML VIAL ONE (06:39)
--- NOTE | 2025-03-26 06:39 | History & Physical Bridge Note ---
Date of Service March 26, 2025 History & Physical Bridge Note I have examined the patient, reviewed the History & Physical and in the interval since the performance of the History & Physical I have noted the following changes of clinical significance: no changes noted
[2025-03-26] MEDS ORDERED: ONDANSETRON INJ 2 MG/ML 2 ML VIAL ONE ×2 (06:40→08:25)
[2025-03-26] MEDS ORDERED: PROPOFOL IV EMULSION 10 MG/ML 100 ML VIAL IV ONE (06:40)
[2025-03-26] MEDS: GABAPENTIN 300 MG CAP PO SCH (06:56)
[2025-03-26] MEDS: FAMOTIDINE 20 MG TAB PO SCH (06:56)
[2025-03-26] MEDS: dexAMETHasone**PF** 10 MG/ML VIAL IV SCH (06:56)
[2025-03-26] MEDS: ACETAMINOPHEN 500 MG TAB PO SCH ×2 (06:56→13:12)
[2025-03-26] MEDS ORDERED: PROMETHAZINE HCL 6.25 MG in SODIUM CHLORIDE 0.9% 50 ML IV PRN (07:18)
[2025-03-26] MEDS ORDERED: ONDANSETRON INJ 2 MG/ML 2 ML VIAL IV PRN (07:18)
[2025-03-26] MEDS ORDERED: HYDROmorphone INJ 1 MG/ML SYRINGE IV PRN (07:18)
[2025-03-26] MEDS ORDERED: ATROPINE SULFATE 0.1 MG/ML 10ML SYR IV PRN (07:18)
[2025-03-26] MEDS: LR 500ML BOLUS, THEN 15ML/HR IV SCH (07:20)
[2025-03-26] MEDS ORDERED: ROCURONIUM BROMIDE 10 MG/ML 5 ML VIAL IV ONE (07:29)
[2025-03-26] MEDS ORDERED: PROPOFOL IV EMULSION 10 MG/ML 20 ML VIAL IV ONE (07:29)
[2025-03-26] MEDS ORDERED: DEXAMETHASONE SOD INJ 4 MG/ML VIAL ONE (07:29)
[2025-03-26] MEDS: TRANEXAMIC ACID 1,000 MG **IV Pre-op IV SCH (07:54)
[2025-03-26] MEDS ORDERED: SUGAMMADEX SODIUM 200 MG/2 ML VIAL IV ONE (08:26)
[2025-03-26] MEDS: ROPIV 0.5% 246mg, Ketorolac 30mg, EPINEPHrine 0.5mg in NSS INFIL SCH (08:45)
[2025-03-26] MEDS: ORTHO JOINT ANESTHETIC ONE (08:46)
--- NOTE | 2025-03-26 09:13 | Operative Report ---
PG Post Operative Report Pre & Post Diagnosis Operation Date: 03/26/25 08:00 Pre-Op Diagnosis: Right Hip Osteoarthritis Post-Op Diagnosis: Right Hip Osteoarthritis I identified the patient and participated in the time-out.: Yes Procedure Operation Date: 03/26/25 08:00 Actual Procedures p Right Anterior Total Hip Arthroplasty, Uncemented(Right) - Amor Dawn DO Surgeon Amor Dawn DO Line Camera Operator Taniya Courtney PA-C Estimated Blood Loss 250 Findings Consistent with Post-Op Diagnosis Specimens Right femoral head Description of Procedure Implants used I used a ZimmerBiomet total hip arthroplasty system with a size 1 Z1 stem, a 46 mm G7 cup, an E1 polyethylene liner, a 32 mm ceramic head with a -3.5 neck. Concetta arrived at the hospital for the above procedure. She was seen in the preoperative holding area and the operative extremity was identified and signed. She was given a spinal anesthetic, a preoperative antibiotic, and TXA. She was then taken back to the operating room and laid on the table in the supine position. She was given basic sedation. The operative leg was secured to a Puristst leg positioner. The hip was then prepped and draped in sterile fashion. A timeout was done and the patient and the operative extremity was properly identified. An anterior approach was used. Dissection was taken down through the fascia and the tensor muscle belly was retracted laterally and the rectus was retracted medially. The circumflex vessels were identified and ligated. The capsule was then incised and tagged for later repair. The femoral neck was then cut and the femoral head was removed. The acetabulum was exposed. Time was spent doing a complete circumferential labral release. Sequential reaming of the acetabulum up to a size 45 reamer was done. Final reamings were done under fluoroscopy to ensure appropriate version. A Biomet 46 mm G7 cup was then impacted into place. The E1 polyethylene liner was then snapped into place. Surrounding soft tissues were then injected with 100 cc of an orthopedic pain control cocktail. The proximal femur was then exposed. Sequential broaching up to a size 1 broach was done. Off that broach a size 32 head with a -3.5 neck was trialed. The hip was reduced and fluoroscopic images showed anatomic alignment of the implants in acceptable length. The broach was removed. The final size 1 standard offset Z1 stem was then impacted into place. A ceramic 32 mm head with a -3.5 neck was then impacted onto the stem and the hip was reduced. Final fluoroscopic images showed anatomic alignment of the hip. The capsule was then closed with #1 Vicryl suture. A dilute betadyne lavage was then done for 3 minutes. The joint was then irrigated with normal saline solution. The fascia was closed with #1 PDS suture. Skin was closed with 2-0 Vicryl, [place] Zipline, and a Silverlon dressing. She was then transferred to a hospital bed and taken to the post anesthesia care unit in stable condition. She tolerated the procedure well. Taniya Courtney PA-C, was present for the entire procedure. He was critical for patient positioning, prepping, draping, retraction exposure, wound closure and application of sterile dressing. I attest to the content of the Intraoperative Record and any orders documented therein. Any exceptions are noted below.
--- NOTE | 2025-03-26 10:13 | XRay Report ---
XR hip 1V RT w pelvis CLINICAL HISTORY: IN PACU - Post Surgical COMPARISON: None FINDINGS: Right hip prosthesis shows no hardware complication. There is expected soft tissue gas. IMPRESSION: Unremarkable postoperative exam. ACT 112: Negative or not required by law. Electronically signed by: Red Hernandez M.D. 03/26/2025 10:11 AM
[2025-03-26] MEDS ORDERED: PHARMACY GLYCEMIC MGMT CONSULT PRN (10:46)
--- NOTE | 2025-03-26 11:05 | Anesthesiology Progress Note ---
Date of Service March 26, 2025 Anesthesia Post Procedure Vital Signs Vital Signs: Temp Pulse Pulse Resp BP Pulse Ox O2 Del Method 03/26/25 10:35 36.6 C 77 16 108/66 97 Room Air 03/26/25 10:25 72 13 110/54 L 92 Room Air 03/26/25 10:15 36.5 C 75 16 103/86 95 Room Air 03/26/25 10:05 77 18 119/55 L 100 Oxymask 03/26/25 09:55 90 16 115/54 L 100 Oxymask 03/26/25 09:46 36.5 C 83 15 144/66 H 100 Oxymask 03/26/25 06:49 36.7 C 88 20 136/75 96 Room Air O2 Flow Rate 03/26/25 10:35 03/26/25 10:25 03/26/25 10:15 03/26/25 10:05 4 03/26/25 09:55 8 03/26/25 09:46 8 03/26/25 06:49 Transfer of Care Handoff Completed per policy Notes Mental Status: alert / awake / arousable Patient Amnestic to Procedure: Yes Nausea / Vomiting: adequately controlled Pain: adequately controlled Airway Patency, RR, SpO2: stable & adequate BP & HR: stable & adequate Hydration State: stable & adequate Anesthetic Complications: no major complications apparent
[2025-03-26] MEDS ORDERED: DEXTROSE 50% 50 ML SYRINGE IV PRN (12:00)
[2025-03-26] MEDS ORDERED: GLUCAGON FOR INJ 1 MG VIAL SQ PRN (12:00)
[2025-03-26] MEDS ORDERED: GLUCOSE 10 TAB/TUBE PO PRN (12:00)
[2025-03-26] MEDS ORDERED: CARBOHYDRATES FOR HYPOGLYCEMIA PO PRN (12:00)
[2025-03-26] MEDS ORDERED: GLUCOSE 40% GEL 15 GM TUBE PO PRN (12:00)
[2025-03-26] MEDS: VENLAFAXINE HCL XR 150 MG CAPXR PO SCH (12:04)
[2025-03-26] MEDS: CHOLECALCIFEROL 25 MCG (1000 UNITS) TAB PO SCH (12:06)
[2025-03-26] MEDS: ASCORBIC ACID 500 MG TAB PO SCH (12:06)
[2025-03-26] MEDS: CYANOCOBALAMIN (B-12) 100 MCG TABLET PO SCH (12:06)
[2025-03-26] MEDS: LEVOTHYROXINE SODIUM 50 MCG TABLET PO SCH (12:06)
[2025-03-26] MEDS: INSULIN ASPART PER UNIT CHARGE SC SCH (12:12)
[2025-03-26] MEDS: KETOROLAC TROMETHAMINE 15 MG/ML VIAL IV SCH (12:12)
[2025-03-26] MEDS: METOPROLOL SUCC 50MG EXT REL TAB PO SCH (13:12)
[2025-03-26] MEDS: LOSARTAN POTASSIUM 50 MG TAB PO SCH (13:12)
[2025-03-26] MEDS: SPIRONOLACTONE 25 MG TAB PO SCH (13:12)
[2025-03-26] MEDS: ISOSORBIDE MONO EXTENDED REL 30 MG TABCR PO SCH (13:13)
--- NOTE | 2025-03-26 13:55 | Pharmacy Report ---
Pharmacy Glycemic Short Note 2 - Date of Service March 26, 2025 - Glycemic Short BSG Results (Last 24 hours): 03/26/25 03/26/25 03/26/25 06:49 10:12 11:48 POC Glucose 138 H 188 H 193 H OUTPATIENT ANTIDIABETIC REGIMEN: * Lantus 22 units qPM ASSESSMENT: * 80 year old s/p surgery, POD 0 - pharmacy consulted for glycemic management. Patient received IV dexamethasone preoperatively, anticipate steroid induced hyperglycemia. Will start novolog now and have scale on for basal at dinner. PLAN FOR INPATIENT GLYCEMIC CONTROL: * Hold outpatient oral diabetes medications * Basal insulin * Lantus 10-20 units daily * Bolus insulin * NovoLog per scale ACHS or Q6hrs while NPO * Goal Range: Low 110 mg/dL - High 150 mg/dL * Correction Factor: 20 mg/dL/unit * Nutritional / Prandial insulin per carb ratio of 1 unit per 7 grams CHO consumed
--- NOTE | 2025-03-26 15:08 | Fluoroscopy Report ---
FL hip RT 1V CLINICAL HISTORY: RT ANTERIOR HIP COMPARISON STUDY: None FLUOROSCOPY TIME: 11 seconds FLUOROSCOPY IMAGES: 1 EXPOSURE DOSE: 1.8 mGy FINDINGS: Fluoroscopy was provided for right hip prosthesis. IMPRESSION: Intraoperative fluoroscopy. ACT 112: Negative or not required by law. Electronically signed by: Red Hernandez M.D. 03/26/2025 3:07 PM
[2025-03-26] MEDS: LANTUS PER UNIT CHARGE SC SCH (17:30)
[2025-03-26] MEDS ORDERED: NON-FORMULARY MEDICATION (Insulin Glargine [Lantus Solostar U-100 Insulin] 100 unit/mL (3 SQ SCH (21:00)
[2025-03-26] MEDS: ATORVASTATIN 40 MG TAB PO SCH (21:50)
[2025-03-27 07:16] LABS: Creatinine Clr Calc Pharmacy 21.9 ml/min
--- NOTE | 2025-03-27 08:11 | Orthopedic Progress Note ---
Date of Service March 27, 2025 Assessment & Plan (1) S/P total right hip arthroplasty: Overall she is doing fairly well. She is not having much pain in the right hip. She will be seen by physical therapy today for ambulation and range of motion exercises. She is on Xarelto for DVT prophylaxis. She can be discharged home later today. She will follow with orthopedics in 2 weeks. Martin Hylton was seen and examined at bedside this morning. Overall she is doing very well. She is not having much pain in the right hip. She has been up and ambulating to the bathroom. She has no complaints.. Review of Systems All systems reviewed & are unremarkable except as noted in HPI & below. Physical Exam On physical exam of the right hip, the dressing is clean and dry. She is sitting in a chair at bedside. She is neurovascular intact.. Results & Data Results & Data Laboratory Results . Diagnostic Findings Postoperative x-rays of the right hip show the prosthesis to be in anatomic alignment without any evidence of fracture, dislocation, or loosening.. . PG Care Time/CCT Total # of Minutes Spent Total Time Spent with Patient: Total time spent is greater than 50% in coordination of care (as documented) at patient's floor/unit and/or counseling patient: Coding Level of Care Code 66889 Post Operative Follow-Up Diagnoses S/P total right hip arthroplasty Z96.641
[2025-03-27 08:15] VITALS: BP 105/69; PULSE 81; RESP 18; TEMP 97.8; O2SAT 96
[2025-03-27] MEDS: RIVAROXABAN 10 MG TABLET PO SCH (08:31)
[2025-03-27] MEDS ORDERED: RIVAROXABAN 20 MG TAB PO SCH (16:30)
== END 2025-03-27 11:10 | disposition home or self-care (01) ==
LOC: ASU 06:32 → 3N 06:32
DX: Z79.890 Hormone replacement therapy; M16.11 Unilateral primary osteoarthritis, right hip; G47.33 Obstructive sleep apnea (adult) (pediatric); I10 Essential (primary) hypertension; I48.91 Unspecified atrial fibrillation; Z88.8 Allergy status to other drugs, medicaments and biological substances; Z79.4 Long term (current) use of insulin; K74.60 Unspecified cirrhosis of liver; Z79.82 Long term (current) use of aspirin; Z79.899 Other long term (current) drug therapy; E03.9 Hypothyroidism, unspecified; Z79.01 Long term (current) use of anticoagulants; E11.43 Type 2 diabetes mellitus with diabetic autonomic (poly)neuropathy